=== PATIENT | male | born 1940 | race Caucasian/White ===

== ENCOUNTER 2018-11-30 14:29 | Emergency (ER) | payer MEDICARE ==
[~2018-11-30] VITALS: Ht 182.9 cm; Wt 90.7 kg
[2018-11-30] MEDS ORDERED: morphine INJ 10 MG/ML 1ML (SYR OR VIAL) IVP STA ×2 (14:42→17:39)
[2018-11-30] MEDS ORDERED: ONDANSETRON 4 MG/2 ML (SDV) Z0FRAN IVP ONE (14:45)
[2018-11-30 15:03] LABS: HEMATOCRIT 45 % (40-54); HEMOGLOBIN 14.7 G/DL (13.3-17.7); MEAN CORPUSCULAR HEMOGLOBIN 29 PG (25-34); MEAN CORPUSCULAR HGB CONC 33 G/DL (32-36); MEAN CORPUSCULAR VOLUME 88 FL (80-99); PLATELET COUNT 181 10^3/uL (130-400); RED CELL DISTRIBUTION WIDTH 12.1 % (10.0-14.5); WHITE BLOOD COUNT 8.1 10^3/uL (4.3-11.0)
[2018-11-30 15:04] LABS: BASOPHILS # (AUTO) 0.1 10^3/uL (0.0-0.1); BASOPHILS % (AUTO) 1 % (0-10); EOSINOPHILS # (AUTO) 0.1 10^3/uL (0.0-0.3); EOSINOPHILS % (AUTO) 1 % (0-10); LYMPHOCYTES # (AUTO) 3.5 X 10^3 (1.0-4.0); LYMPHOCYTES % (AUTO) 44 % (12-44); MEAN PLATELET VOLUME 10.5 FL (7.4-10.4); MONOCYTES # (AUTO) 0.7 X 10^3 (0.0-1.0); MONOCYTES % (AUTO) 8 % (0-12); NEUTROPHILS # (AUTO) 3.7 X 10^3 (1.8-7.8); NEUTROPHILS % (AUTO) 46 % (42-75)
--- OUTSIDE RECORDS SUMMARY | 2018-11-30 15:12 | XMS REPORT ---
Author Author JOSLYN HESS Organization [facility] Address [address] [place] [address] Care Team Providers Care Operations Asst Name Role Phone JOSLYN HESS Unavailable PROBLEMS Unknown Problems ALLERGIES No Known Allergies ENCOUNTERS Encounter Location Date Diagnosis [address] [id number] 12 Feb, [address] [address] 15 Oct, 2018 Perforation of right tympanic membrane H72.91 and Recurrent acute suppurative otitis media of right ear without spontaneous rupture of tympanic membrane H66.004 [facility] [address] [place] [address] 14 Oct, [address] [address] 04 Oct, 2018 Right non-suppurative otitis media H65.91 IMMUNIZATIONS No Known Immunizations SOCIAL HISTORY Never Assessed REASON FOR VISIT recheck ear, right saw Dr Jerome 10/15/18, ear drainage, [facility] Activity Details Follow Up prn Reason: VITAL SIGNS Height 72 in 2018-10-26 Weight 202 lbs 2018-10-26 Temperature 98.4 degrees Fahrenheit 2018-10-26 Heart Rate 74 bpm 2018-10-26 Respiratory Rate 22 2018-10-26 BMI 27.39 kg/m2 2018-10-26 Blood pressure systolic 140 mmHg 2018-10-26 Blood pressure diastolic 70 mmHg 2018-10-26 MEDICATIONS Medication Instructions Dosage Frequency Start Date End Date Duration Status Aspirin 81 MG Orally Once a day 1 tablet 24h 30 day(s) Active Myrbetriq 50 MG Orally in the morning 1 tablet 30 day(s) Active Fluoxetine HCl 20 MG Orally Once a day 1 capsule 24h 30 day(s) Active Ciprodex 0.3-0.1 % Otic Twice a day 4 drops into affected ear 12h 15 Oct, 2019 7 days Active Glucosamine Chondro Complex Active Lovastatin 20 MG Orally Once a day 1 tablet with the evening meal 24h 30 day(s) Active Latanoprost 0.005 % Ophthalmic Once a day 1 drop into affected eye in the evening 24h Active Augmentin 875-125 MG Orally every 12 hrs 1 tablet 12h Oct, 10 day(s) Active Alprazolam 0.25 MG Orally Twice a day 1 tablet 12h Active Magnesium Carbonate 250 MG/GM as directed Active Multivitamin Adults 50+ - as directed Active RESULTS No Results PROCEDURES Procedure Date Ordered Result Body Site [facility] VISIT NEW PATIENT Oct 26, 2018 INSTRUCTIONS MEDICATIONS ADMINISTERED No Known Medications MEDICAL (GENERAL) HISTORY Type Description Date Medical History HTN Medical History Anxiety Medical History Glaucoma Medical History Diverticulosis Medical History elevated diaphragm Medical History OA Surgical History appendectomy Surgical History rotator cuff repair left Surgical History colonoscopy Surgical History cataract-right eye Surgical History gallbladder Surgical History TKA right Surgical History Various skin cancers/skin tags Hospitalization History diverticulosis Hospitalization History c-diff
--- NOTE | 2018-11-30 15:16 | Diagnostic Imaging Report ---
INDICATION: Trauma with right knee pain. EXAMINATION: AP, oblique and lateral views of the right knee were obtained. FINDINGS: There is an acute fracture of the right distal femur just above the patient's knee prosthesis. There is posterior displacement of the distal fragment relative to the proximal fragment. There is no evidence of tibial or fibular fracture. IMPRESSION: Acute fracture of distal femur of the supracondylar region, just above the patient's knee prosthesis. There is posterior displacement of the distal portion of the femur relative to the proximal portion of the femur. Dictated by: Dictated on workstation # [id number]
[2018-11-30 15:25] LABS: ALKALINE PHOSPHATASE 88 U/L (40-136); BILIRUBIN,TOTAL 1.1 MG/DL (0.1-1.0); BUN/CREATININE RATIO 21; CALCIUM 9.6 MG/DL (8.5-10.1); CARBON DIOXIDE 23 MMOL/L (21-32); CHLORIDE 103 MMOL/L (98-107); CREATININE SERUM 1.07 MG/DL (0.60-1.30); GFR ESTIMATED > 60; GLUCOSE 137 MG/DL (70-105); POTASSIUM 4.1 MMOL/L (3.6-5.0); SODIUM 141 MMOL/L (135-145)
[2018-11-30 15:26] LABS: ALANINE AMINOTRANSFERASE 23 U/L (0-55); ALBUMIN 4.4 GM/DL (3.2-4.5); TOTAL PROTEIN 7.3 GM/DL (6.4-8.2)
[2018-11-30 15:29] LABS: BAND NEUTROPHILS 7 %; BASOPHILS % (MANUAL) 1 %; EOSINOPHILS % (MANUAL) 1 %; LYMPHOCYTES % (MANUAL) 43 %; MONOCYTES % (MANUAL) 8 %; NEUTROPHILS % (MANUAL) 40 %
--- NOTE | 2018-11-30 15:29 | Diagnostic Imaging Report ---
INDICATION: Trauma. Time of exam: 03:00 p.m. No prior studies are available for comparison. Right hemidiaphragm is elevated. No infiltrate or contusion is seen. There is no effusion or pneumothorax. No acute bony abnormality is seen. IMPRESSION: Elevated right hemidiaphragm. No other significant abnormality is detected. Dictated by: Dictated on workstation # [id number]
--- NOTE | 2018-11-30 15:30 | Diagnostic Imaging Report ---
INDICATION: Trauma. TIME OF EXAM: 2:48 p.m. EXAMINATION: Multiple views of the right femur were obtained. FINDINGS: Alignment at the hip is normal. There are postoperative changes of right knee arthroplasty. There appears to be a supracondylar distal femur fracture with mild posterior displacement of the distal fracture fragment. No other fracture is seen. IMPRESSION: Displaced supracondylar distal femur fracture. Dictated by: Dictated on workstation # [id number]
--- NOTE | 2018-11-30 15:32 | Diagnostic Imaging Report ---
INDICATION: Trauma. TIME OF EXAM: 02:50 p.m. Frontal and lateral views of the right tibia and fibula are obtained. There are postop changes of total knee arthroplasty. There is an acute supracondylar fracture of the distal femur with mild posterior displacement of distal fracture fragment. Alignment at the ankle is normal. The tibia and fibula appear intact. IMPRESSION: Supracondylar distal femur fracture. Dictated by: Dictated on workstation # [id number]
--- NOTE | 2018-11-30 15:34 | Diagnostic Imaging Report ---
INDICATION: Trauma, a bowl fell on the patient. TIME OF EXAM 2:55 PM FINDINGS: Femoral acetabular alignment is normal bilaterally. Both femoral heads and necks are intact. The rami appear intact. SI joints and symphysis are non-widened. No fractures are seen. IMPRESSION: No acute bony abnormality is detected. Dictated by: Dictated on workstation # [id number]
[2018-11-30 15:56] LABS: INR 1.1 (0.8-1.4)
[2018-11-30] MEDS ORDERED: HOLD METFORMIN - RECEIVED CONTRAST 20 ML VIAL IV SCH (16:15)
[2018-11-30] MEDS ORDERED: NS 100 ML (IVPB) BAG IV ONE (16:15)
[2018-11-30] MEDS ORDERED: IOHEXOL 350 MG/ML 100 ML (OMNIPAQUE 350) VIAL IV ONE (16:15)
[2018-11-30] MEDS ORDERED: CATHETER FLUSH 10 ML SYR IV PRN (16:15)
--- NOTE | 2018-11-30 16:49 | NUR ---
Patient back from CT. Denies need for pain meds.
--- NOTE | 2018-11-30 16:58 | Diagnostic Imaging Report ---
PROCEDURE: CT head and CT cervical spine without contrast. TECHNIQUE: Multiple contiguous axial images were obtained through the brain and cervical spine without the use of intravenous contrast. Sagittal and coronal reformations through the cervical spine were then performed. Auto Exposure Controls were utilized during the CT exam to meet ALARA standards for radiation dose reduction. INDICATION: Trauma. COMPARISON: None. FINDINGS: CT HEAD: The ventricles and cortical sulci are diffusely prominent, compatible with age-related volume loss. There are confluent areas of abnormal, low attenuation in the periventricular white matter. This is consistent with small vessel ischemic changes; age-indeterminate. There is no prior study available for comparison. There is no midline shift or mass-effect. No acute intra-axial hemorrhage is seen. There are no abnormal areas of increased or decreased density to suggest acute hemorrhage or edema. No extra-axial masses or collections are present. The bony calvarium is intact. The visualized paranasal sinuses are unremarkable. The mastoid air cells are partially opacified on the right.. CT CERVICAL SPINE: Evaluation of static alignment demonstrates slight grade 1 anterolisthesis of C6 on C7. Otherwise, static alignment is maintained. There is no evidence of jumped facets. Vertebral body heights are preserved. There is no evidence of acute fracture. No bony fragments are seen within the spinal canal. There are moderate multilevel degenerative changes consisting of intervertebral disc height loss with anterior and posterior disc bulges and multilevel facet arthropathy. Pre-and paravertebral soft tissue structures are unremarkable. Note is made of calcified carotid atherosclerosis. Included portion of the lung apices are unremarkable. IMPRESSION: 1. No acute intracranial abnormality. No CT evidence of mass, acute infarct or intracranial hemorrhage. 2. Small vessel ischemic changes in the periventricular and subcortical white matter; likely chronic. 3. No acute fracture or dislocation of cervical spine. 4. Mild multilevel degenerative changes. Dictated by: Dictated on workstation # [id number]
--- NOTE | 2018-11-30 17:20 | Diagnostic Imaging Report ---
PROCEDURE: CT chest, abdomen, and pelvis with contrast. TECHNIQUE: Multiple contiguous axial images were obtained through the chest, abdomen, and pelvis after the administration of intravenous contrast. Auto Exposure Controls were utilized during the CT exam to meet ALARA standards for radiation dose reduction. INDICATION: Trauma. Bowl fell on patient. FINDINGS: Sagittal and coronal reformatted images of the thoracic and lumbar spine show good alignment. No compression fractures are demonstrated. There are degenerative disc disease and degenerative facet changes. There are hypertrophic endplate changes anteriorly most probably at the level of T11 through L3. CT chest: The lungs are well-aerated. No evidence of pneumothorax. There is some infiltrate in the right lung base which could represent some lung contusion. No evidence of pleural effusion. No displaced rib fractures are demonstrated. There does appear to be a nondisplaced rib fracture posteriorly on the 12th rib on the right. There is good opacification of the aorta and pulmonary arteries. Vessels appear normal. No mediastinal or hilar adenopathy of pathologic size. IMPRESSION: There is infiltrate noted in the posterior basilar segment of right lung, likely secondary to lung contusion. No pneumothorax or pleural effusion. CT abdomen and pelvis: There is good opacification of the abdominal organs. No findings are seen to indicate visceral lacerations. Gallbladder is absent. There is a large cyst off of the upper pole of the right kidney measuring 13 cm. This does have a benign appearance without enhancement. Small cyst noted medially in the left kidney and inferiorly in the left kidney with largest cyst off the lower pole measuring 2.9 cm. Aorta and abdominal vessels show good enhancement with mild atherosclerotic change. No evidence of aortic dissection. No aneurysm. The stomach and small bowel are nondistended. The colon shows normal stool and gas pattern. There is diverticulosis of the sigmoid colon without evidence of diverticulitis. No free air or free fluid. The bony pelvis does appear to be intact. Femoral heads are in normal articulation bilaterally. IMPRESSION: 1. No acute intra-abdominal findings demonstrated. 2. Bilateral renal cysts with large cyst noted in right kidney. These do appear simple and benign in nature. Dictated by: Dictated on workstation # [id number]
--- NOTE | 2018-11-30 17:59 | ED Trauma-Multisystem ---
General Chief Complaint: Trauma-Non Activation Stated Complaint: RT KNEE INJ Nursing Triage Note: Was knocked down and stepped on by a 500 lb bull. Is complaining of R knee pain. Denies loc or hitting head. Source of Information: Patient History of Present Illness Date Seen by Provider: Nov 30, 2018 Time Seen by Provider: 14:30 Initial Comments Patient is a 78-year-old male who presents with head injury, chest injury and right lower extremity injury after being struck by a bull, flying in the air and landing on the ground. The patient was then stomped on by the ball multiple times. Patient arrives by private vehicle. He does not recall loss of consciousness but does report headache. Denies neck pain is not on anticoagulation therapy. Patient complains of chest wall pain, left shoulder pain and pain over his lower legs. Patient brought immediately to treatment room , placed in a gown. Obvious deformity noted to right leg. Neurovascularly intact. ED arrival GCS 15. Occurred: Just Prior to Arrival Pain/Injury Location: Abdomen, Chest, Head, Lower Extremity, Upper Extremity Method of Injury: Direct Blow, Fall Associated Symptoms (Fall): Chest Pain, Trouble Walking Allergies and Home Medications Allergies Coded Allergies: No Known Drug Allergies (Unverified , 11/30/18) Patient Home Medication List Home Medication List Reviewed: Yes Review of Systems Review of Systems Constitutional: see HPI Past Dsdyvgy-Xpbbob-Pofnml Hx Past Med/Social Hx: Reviewed Nursing Past Med/Soc Hx Patient Social History Alcohol Use: Denies Use Recreational Drug Use: No Smoking Status: Unknown if Ever Smoked Recent Foreign Travel: No Contact w/Someone Who Travel: No Recent Infectious Disease Expo: No Physical Abuse: No Sexual Abuse: No Mistreated: No Physical Exam Vital Signs Vital Signs - First Documented Height, Weight, BMI Height: 6'0" Weight: 200lbs. oz. [id number]; BMI Method:Stated General Appearance: Moderate Distress Head: No Evidence of Injury Eyes: Left Eye Normal Inspection, Left Eye PERRL Ears, Nose, Throat: Hearing Grossly Normal Neck: Full Range of Motion, Normal Inspection, Non Tender Cardiovascular: Regular Rate, Rhythm Respiratory: Chest Non Tender, Lungs Clear Gastrointestinal: Normal Bowel Sounds, No Organomegaly, Soft Rectal: Normal Exam, Normal Rectal Tone Focused Exam Sepsis Stage: Ruled Out Progress/Results/Core Measures Results/Orders Lab Results Laboratory Tests Test 11/30/18 14:35 11/30/18 14:55 Range/Units White Blood Count 8.1 4.3-11.0 10^3/uL Red Blood Count 5.09 4.35-5.85 10^6/uL Hemoglobin 14.7 13.3-17.7 G/DL Hematocrit 45 40-54 % Mean Corpuscular Volume 88 80-99 FL Mean Corpuscular Hemoglobin 29 25-34 PG Mean Corpuscular Hemoglobin Concent 33 32-36 G/DL Red Cell Distribution Width 12.1 10.0-14.5 % Platelet Count 181 130-400 10^3/uL Mean Platelet Volume 10.5 H 7.4-10.4 FL Neutrophils (%) (Auto) 46 42-75 % Lymphocytes (%) (Auto) 44 12-44 % Monocytes (%) (Auto) 8 0-12 % Eosinophils (%) (Auto) 1 0-10 % Basophils (%) (Auto) 1 0-10 % Neutrophils # (Auto) 3.7 1.8-7.8 X 10^3 Lymphocytes # (Auto) 3.5 1.0-4.0 X 10^3 Monocytes # (Auto) 0.7 0.0-1.0 X 10^3 Eosinophils # (Auto) 0.1 0.0-0.3 10^3/uL Basophils # (Auto) 0.1 0.0-0.1 10^3/uL Neutrophils % (Manual) 40 % Lymphocytes % (Manual) 43 % Monocytes % (Manual) 8 % Eosinophils % (Manual) 1 % Basophils % (Manual) 1 % Band Neutrophils 7 % Sodium Level 141 135-145 MMOL/L Potassium Level 4.1 3.6-5.0 MMOL/L Chloride Level 103 98-107 MMOL/L Carbon Dioxide Level 23 21-32 MMOL/L Anion Gap 15 H 5-14 MMOL/L Blood Urea Nitrogen 22 H 7-18 MG/DL Creatinine 1.07 0.60-1.30 MG/DL Estimat Glomerular Filtration Rate > 60 BUN/Creatinine Ratio 21 Glucose Level 137 H 70-105 MG/DL Calcium Level 9.6 8.5-10.1 MG/DL Corrected Calcium 9.3 8.5-10.1 MG/DL Total Bilirubin 1.1 H 0.1-1.0 MG/DL Aspartate Amino Transf (AST/SGOT) 38 H 5-34 U/L Alanine Aminotransferase (ALT/SGPT) 23 0-55 U/L Alkaline Phosphatase 88 40-136 U/L Total Protein 7.3 6.4-8.2 GM/DL Albumin 4.4 3.2-4.5 GM/DL Prothrombin Time 14.0 12.2-14.7 SEC INR Comment 1.1 0.8-1.4 Activated Partial Thromboplast Time 25 24-35 SEC My Orders Orders - DAYANARA HERNANDEZ DO Morphine Injection (Morphine Injection (11/30/18 14:42) Ondansetron Injection (Zofran Injectio (11/30/18 14:45) Cbc With Automated Diff (11/30/18 14:42) Cbc And Manual Diff (11/30/18 14:42) Knee 3 View Right (11/30/18 14:42) Comprehensive Metabolic Panel (11/30/18 14:55) Protime With Inr (11/30/18 14:55) Partial Thromboplastin Time (11/30/18 14:55) Chest 1 View Ap/Pa Only (11/30/18 14:56) Pelvis (Ap) (11/30/18 14:56) Femur 2 View Right (11/30/18 14:57) Tibia Fibula 2 View Right (11/30/18 14:57) Ct Head/Cervical Spine Wo (11/30/18 15:38) Ct Chest/Abdomen/Pelvis W (11/30/18 15:38) Iohexol Injection (Omnipaque 350 Mg/Ml 1 (11/30/18 16:15) Received Contrast (Hold Metformin- Contr (11/30/18 16:15) Sodium Chloride Flush (Catheter Flush Sy (11/30/18 16:15) Ns (Ivpb) (Sodium Chloride 0.9% Ivpb Bag (11/30/18 16:15) Nursing Communication (Order) (11/30/18 17:15) Morphine Injection (Morphine Injection (11/30/18 17:39) Ns Iv 1000 Ml (Sodium Chloride 0.9%) (11/30/18 18:00) Ondansetron Injection (Zofran Injectio (11/30/18 18:00) Morphine Injection (Morphine Injection (11/30/18 18:00) Medications Given in ED Current Medications Medications Dose Ordered Sig/Brennen Route Start Time Stop Time Status Last Admin Dose Admin Iohexol 100 ml ONCE ONCE IV 11/30/18 16:15 11/30/18 16:46 DC 11/30/18 16:32 100 ML Ondansetron HCl 4 mg ONCE ONCE IVP 11/30/18 14:45 11/30/18 14:46 DC 11/30/18 14:48 4 MG Sodium Chloride 10 ml NEEDED PRN IV 11/30/18 16:15 11/30/18 16:32 10 ML Sodium Chloride 100 ml ONCE ONCE IV 11/30/18 16:15 11/30/18 16:46 DC 11/30/18 16:32 100 ML Vital Signs/I&O 11/30/18 11/30/18 14:30 14:30 Temp 98.3 98.3 Pulse 82 82 Resp 20 20 B/P (MAP) 121/67 (85) 121/67 (85) Pulse Ox 95 95 Blood Pressure Mean: 85 Departure Impression Primary Impression: Right femoral fracture Disposition: 02 XFER SHT-TRM HOSP Condition: Stable Admissions Decision to Admit Reason: Admit from ER (Trauma) (Dr. Alvarado) Decision to Admit/Date: Nov 30, 2018 Time/Decision to Admit Time: 18:07 Transfer Time Spoke to Accepting Phy: 18:07 Method of Transfer: EMS Departure-Patient Inst. Referrals: CHRIS GREY MD (PCP/Family) Primary Care Physician DAYANARA HERNANDEZ DO Nov 30, 2018 17:59
[2018-11-30] MEDS ORDERED: ONDANSETRON 4 MG/2 ML (SDV) Z0FRAN IVP PRN (18:00)
[2018-11-30] MEDS ORDERED: morphine INJ 10 MG/ML 1ML (SYR OR VIAL) IVP PRN (18:00)
[2018-11-30] MEDS ORDERED: NS IV 1000 ML 1,000 ML IV SCH (18:00)
--- NOTE | 2018-11-30 18:02 | NUR ---
Knee immobilizer applied to R leg.
[2018-11-30 18:33] VITALS: BP 106/66
--- NOTE | 2018-11-30 18:47 | NUR ---
Patient transferred at this time via [facility]
== END 2018-12-01 18:33 | disposition short-term general hospital (02) ==
LOC: ER FS 14:33
DX: S72.451A Displaced supracondylar fracture without intracondylar extension of lower end of right femur, initial encounter for closed fracture (principal); S09.90XA Unspecified injury of head, initial encounter; W55.89XA Other contact with other mammals, initial encounter
CPT/HCPCS: 36415; 70450; 71045; 71260; 72125; 72170; 73552; 73562; 73590; 74177; 80053; 85007; 85027; 85610; 85730

== ENCOUNTER 2019-01-30 23:06 | Observation (INO) | payer MEDICARE ==
[~2019-01-30] VITALS: Ht 182.9 cm; Wt 88.1 kg
--- OUTSIDE RECORDS SUMMARY | 2019-01-30 23:12 | XMS REPORT | Continuity of Care Document ---
Author Organization Unknown Address Unknown Allergies There is no data. Medications There is no data. Problems There is no data. Procedures There is no data. Results There is no data. Encounters ACCT No. Visit Date/Time Discharge Status Pt. Type Provider Facility Loc./Unit Complaint [id number] 2019 11:00:00 2019 23:59:59 [facility]
[2019-01-30] MEDS ORDERED: RT-ALBUTEROL/IPRATROPIUM 3 ML (DUONEB) VIAL INH ONE (23:45)
[2019-01-30] MEDS ORDERED: ASPIRIN 81 MG CHEW (CHILDREN'S ASA) PO ONE (23:45)
[2019-01-30 23:53] LABS: HEMATOCRIT 42 % (40-54); HEMOGLOBIN 13.5 G/DL (13.3-17.7); MEAN CORPUSCULAR HEMOGLOBIN 29 PG (25-34); MEAN CORPUSCULAR HGB CONC 32 G/DL (32-36); MEAN CORPUSCULAR VOLUME 89 FL (80-99); MEAN PLATELET VOLUME 10.1 FL (7.4-10.4); PLATELET COUNT 169 10^3/uL (130-400); RED CELL DISTRIBUTION WIDTH 12.5 % (10.0-14.5); WHITE BLOOD COUNT 6.9 10^3/uL (4.3-11.0)
[2019-01-30 23:54] LABS: BASOPHILS # (AUTO) 0.1 10^3/uL (0.0-0.1); BASOPHILS % (AUTO) 1 % (0-10); EOSINOPHILS # (AUTO) 0.2 10^3/uL (0.0-0.3); EOSINOPHILS % (AUTO) 3 % (0-10); LYMPHOCYTES # (AUTO) 1.6 X 10^3 (1.0-4.0); LYMPHOCYTES % (AUTO) 23 % (12-44); MONOCYTES # (AUTO) 0.7 X 10^3 (0.0-1.0); MONOCYTES % (AUTO) 10 % (0-12); NEUTROPHILS # (AUTO) 4.4 X 10^3 (1.8-7.8); NEUTROPHILS % (AUTO) 63 % (42-75)
[2019-01-31 00:23] LABS: ALANINE AMINOTRANSFERASE 15 U/L (0-55); ALKALINE PHOSPHATASE 147 U/L (40-136); BILIRUBIN,TOTAL 0.4 MG/DL (0.1-1.0); BUN/CREATININE RATIO 23; CALCIUM 9.6 MG/DL (8.5-10.1); CARBON DIOXIDE 24 MMOL/L (21-32); CHLORIDE 103 MMOL/L (98-107); CREATININE SERUM 0.95 MG/DL (0.60-1.30); GFR ESTIMATED > 60; GLUCOSE 116 MG/DL (70-105); MAGNESIUM 2.1 MG/DL (1.8-2.4); POTASSIUM 4.5 MMOL/L (3.6-5.0); SODIUM 141 MMOL/L (135-145)
[2019-01-31 00:24] LABS: ALBUMIN 4.3 GM/DL (3.2-4.5); TOTAL PROTEIN 7.3 GM/DL (6.4-8.2)
[2019-01-31] MEDS ORDERED: IOHEXOL 350 MG/ML 100 ML (OMNIPAQUE 350) VIAL IV ONE (00:30)
[2019-01-31] MEDS ORDERED: NS 100 ML (IVPB) BAG IV ONE (00:30)
[2019-01-31] MEDS ORDERED: HOLD METFORMIN - RECEIVED CONTRAST 20 ML VIAL IV SCH (00:30)
[2019-01-31] MEDS ORDERED: ASPIRIN 81 MG CHEW (CHILDREN'S ASA) PO ONE (01:00)
--- NOTE | 2019-01-31 01:45 | ED Chest Pain ---
General Chief Complaint: Chest Pain Stated Complaint: ANXIETY;HEADACHE;SOB Nursing Triage Note: pt states he had a panic attack earlier tonight, does co of ongoing soa x 1 year, states tonight he had chest pain while walking into ed but none upon arrival to room Nursing Sepsis Screen: No Definite Risk Source: patient, family Exam Limitations: no limitations History of Present Illness Date Seen by Provider: January 31, 2019 Time Seen by Provider: 23:20 Initial Comments This 79 year old gentleman presents to the ER by private vehicle for reasons of shortness of air and anxiety. He also reported a brief episode of right lower chest pain about the time he arrived to the ER. That pain is now gone. Patient had a femur fracture in November of this year that was surgically repaired at [facility]. He called 911 earlier in the evening because of a "panic attack" and shortness of breath. He was assessed at the home but did not come to the ER. He later decided to come to the ER when symptoms worsened again. He has had increasing difficulties with shortness of breath over the last several months but his shortness of breath became acutely worse tonight. He denies any cough or fever. He denies any calf pain or swelling. Allergies and Home Medications Allergies Coded Allergies: No Known Drug Allergies (Unverified , 11/30/18) Patient Home Medication List Home Medication List Reviewed: Yes Review of Systems Review of Systems Constitutional: no symptoms reported EENTM: No Symptoms Reported Respiratory: See HPI Cardiovascular: See HPI Gastrointestinal: No Symptoms Reported Genitourinary: No Symptoms Reported Musculoskeletal: no symptoms reported Skin: no symptoms reported Psychiatric/Neurological: No Symptoms Reported Endocrine: No Symptoms Reported Hematologic/Lymphatic: No Symptoms Reported Past Byseisf-Uqzfvd-Yzajog Hx Past Med/Social Hx: Reviewed and Corrections made Patient Social History Alcohol Use: Rarely Uses Recreational Drug Use: No Smoking Status: Former Smoker 2nd Hand Smoke Exposure: No Recent Foreign Travel: No Contact w/Someone Who Travel: No Recent Infectious Disease Expo: No Recent Hopitalizations: No Physical Abuse: No Sexual Abuse: No Mistreated: No Fear: No Seasonal Allergies Seasonal Allergies: No Past Medical History Surgeries: Yes Appendectomy, Eye Surgery, Orthopedic Respiratory: No Cardiac: No Neurological: No Genitourinary: No Gastrointestinal: Yes Diverticulosis, Hemorrhoids Musculoskeletal: Yes Arthritis Endocrine: Yes HEENT: Yes Cataract Cancer: Yes Skin Psychosocial: No Integumentary: No Blood Disorders: No Physical Exam Vital Signs Vital Signs - First Documented 01/30/19 01/30/19 23:47 23:53 Temp 98.0 Pulse 86 Resp 23 B/P (MAP) 126/70 (88) Pulse Ox 95 O2 Delivery Nasal Cannula O2 Flow Rate 2.00 Capillary Refill : Less Than 3 Seconds Height, Weight, BMI Height: 6'0" Weight: 195lbs. oz. 88.454529pz; BMI Method:Stated General Appearance: No Apparent Distress, WD/WN HEENT: PERRL/EOMI, Normal ENT Inspection, Pharynx Normal Neck: Normal Inspection Respiratory: Lungs Clear, No Accessory Muscle Use, No Respiratory Distress, Decreased Breath Sounds, Other (prolonged expiratory phase) Cardiovascular: Regular Rate, Rhythm, No Edema, No Murmur Gastrointestinal: Normal Bowel Sounds, Non Tender, Soft Extremity: Normal Inspection, Non Tender, No Calf Tenderness, No Pedal Edema Neurologic/Psychiatric: Alert, Oriented x3, No Motor/Sensory Deficits, Normal Mood/Affect, senior developer II-XII Norm as Tested Skin: Normal Color, Warm/Dry Progress/Results/Core Measures Results/Orders Lab Results Laboratory Tests Test 01/30/19 00:00 01/30/19 23:38 Range/Units Troponin T 15 <=15 NG/L White Blood Count 6.9 4.3-11.0 10^3/uL Red Blood Count 4.71 4.35-5.85 10^6/uL Hemoglobin 13.5 13.3-17.7 G/DL Hematocrit 42 40-54 % Mean Corpuscular Volume 89 80-99 FL Mean Corpuscular Hemoglobin 29 25-34 PG Mean Corpuscular Hemoglobin Concent 32 32-36 G/DL Red Cell Distribution Width 12.5 10.0-14.5 % Platelet Count 169 130-400 10^3/uL Mean Platelet Volume 10.1 7.4-10.4 FL Neutrophils (%) (Auto) 63 42-75 % Lymphocytes (%) (Auto) 23 12-44 % Monocytes (%) (Auto) 10 0-12 % Eosinophils (%) (Auto) 3 0-10 % Basophils (%) (Auto) 1 0-10 % Neutrophils # (Auto) 4.4 1.8-7.8 X 10^3 Lymphocytes # (Auto) 1.6 1.0-4.0 X 10^3 Monocytes # (Auto) 0.7 0.0-1.0 X 10^3 Eosinophils # (Auto) 0.2 0.0-0.3 10^3/uL Basophils # (Auto) 0.1 0.0-0.1 10^3/uL Prothrombin Time 14.0 12.2-14.7 SEC INR Comment 1.0 0.8-1.4 Activated Partial Thromboplast Time 28 24-35 SEC D-Dimer 3.90 H 0.00-0.49 UG/ML Sodium Level 141 135-145 MMOL/L Potassium Level 4.5 3.6-5.0 MMOL/L Chloride Level 103 98-107 MMOL/L Carbon Dioxide Level 24 21-32 MMOL/L Anion Gap 14 5-14 MMOL/L Blood Urea Nitrogen 22 H 7-18 MG/DL Creatinine 0.95 0.60-1.30 MG/DL Estimat Glomerular Filtration Rate > 60 BUN/Creatinine Ratio 23 Glucose Level 116 H 70-105 MG/DL Calcium Level 9.6 8.5-10.1 MG/DL Corrected Calcium 9.4 8.5-10.1 MG/DL Magnesium Level 2.1 1.8-2.4 MG/DL Total Bilirubin 0.4 0.1-1.0 MG/DL Aspartate Amino Transf (AST/SGOT) 19 5-34 U/L Alanine Aminotransferase (ALT/SGPT) 15 0-55 U/L Alkaline Phosphatase 147 H 40-136 U/L Myoglobin 35.3 10.0-92.0 NG/ML Total Protein 7.3 6.4-8.2 GM/DL Albumin 4.3 3.2-4.5 GM/DL My Orders Orders - ANALI GERMAIN MD Cbc With Automated Diff (01/30/19 23:32) Magnesium (01/30/19 23:32) Chest 1 View Ap/Pa Only (01/30/19:32) Ekg Tracing (01/30/19:32) Comprehensive Metabolic Panel (01/30/19:32) Myoglobin Serum (01/30/19 23:32) Protime With Inr (01/30/19:32) Partial Thromboplastin Time (01/30/19:) O2 (5/22/19 23:32) Monitor-Rhythm Ecg Trace Only (01/30/19 23:32) Lipid Panel (01/31/19 06:00) Aspirin Chewable Tablet (Baby Aspirin Ch (01/30/19 23:45) Ed Iv/Invasive Line Start (01/30/19 23:32) Fibrin Degradation Products (01/30/19 23:32) Albuterol/Ipra Inhalation Soln (Duoneb I (01/30/19 23:45) Svn Small Volume Nebulizer (01/30/19 23:32) Troponin T (01/31/19 00:02) Ct Angio Chest W (01/31/19 00:27) Iohexol Injection (Omnipaque 350 Mg/Ml 1 (01/31/19 00:30) Received Contrast (Hold Metformin- Contr (01/31/19 00:30) Ns (Ivpb) (Sodium Chloride 0.9% Ivpb Bag (01/31/19 00:30) Aspirin Chewable Tablet (Baby Aspirin Ch (01/31/19 01:00) Medications Given in ED Current Medications Medications Dose Ordered Sig/Brennen Route Start Time Stop Time Status Last Admin Dose Admin Albuterol/ Ipratropium 3 ml ONCE ONCE INH 01/30/19 23:45 01/30/19 23:46 DC 01/30/19 23:46 3 ML Aspirin 324 mg ONCE ONCE PO 01/30/19 23:45 01/30/19 23:46 DC 01/30/19 23:46 324 MG Iohexol 100 ml ONCE ONCE IV 01/31/19 00:30 01/31/19 00:31 DC 01/31/19 00:40 100 ML Sodium Chloride 100 ml ONCE ONCE IV 01/31/19 00:30 01/31/19 00:31 DC 01/31/19 00:40 100 ML Vital Signs/I&O 01/30/19 01/30/19 23:47 23:53 Temp 98.0 Pulse 86 Resp 23 B/P (MAP) 126/70 (88) Pulse Ox 95 90 O2 Delivery Nasal Cannula Room Air O2 Flow Rate 2.00 Blood Pressure Mean: 88 Progress Progress Note : Progress Note Patient was seen and examined. Aspirin was given as part of the chest pain protocol. EKG showed no ischemic changes. D-dimer returned significantly elevated. CT angiogram of the chest was obtained. Bilateral pulmonary emboli were identified. Patient was treated with a Eliquis. He received a DuoNeb treatment but that did not resolve his hypoxia. Patient was hypoxic with oxygen saturations in the upper 80s on room air. He did well on nasal cannula at low flow. Because of the hypoxia, admission was felt appropriate. Case was reviewed with Dr. Pimentel who agrees with admission. Patient was transferred to via [facility] in [place] for admission. Initial ECG Impression Date: January 31, 2019 Initial ECG Impression Time: 23:41 Initial ECG Rate: 81 Initial ECG Rhythm: Normal Sinus Initial ECG Intervals: Normal Initial ECG Impression: Normal Comment Normal sinus rhythm with no ST elevation or depression. No abnormal intervals or axis deviation. Diagnostic Imaging Diagonstic Imaging: Xray Plain Films/CT/US/NM/MRI: chest Comments Chest x-ray viewed by me. Report not yet available. There was elevation of the right hemidiaphragm. No other acute abnormalities appreciated. Departure Communication (Admissions) Time/Spoke to Admitting Phy: 01:49 Dr. Pimentel Impression Primary Impression: Bilateral pulmonary embolism Additional Impression: Hypoxia Disposition: 09 ADMITTED INPATIENT Condition: Improved Admissions Decision to Admit Reason: Admit from ER (General) Decision to Admit/Date: January 31, 2019 Time/Decision to Admit Time: 01:40 Transfer Time Spoke to Accepting Phy: 01:49 Transfer Time: 03:52 Transfer Facility: [facility] [facility] Method of Transfer: EMS Departure-Patient Inst. Referrals: SELFCHRIS MD (PCP/Family) Primary Care Physician ANALI GERMAIN MD January 31, 2019 01:45
--- OUTSIDE RECORDS SUMMARY | 2019-01-31 02:14 | XMS REPORT | Continuity of Care Document ---
Author Organization Unknown Address Unknown Allergies There is no data. Medications There is no data. Problems There is no data. Procedures There is no data. Results There is no data. Encounters ACCT No. Visit Date/Time Discharge Status Pt. Type Provider Facility Loc./Unit Complaint [id number] 2019 11:00:00 2019 23:59:59 CLS [facility]
[2019-01-31] MEDS ORDERED: APIXABAN 5 MG (ELIQUIS) TABLET PO ONE (02:30)
--- NOTE | 2019-01-31 03:30 | NUR ---
ems here for pt transport
[2019-01-31 04:30] VITALS: BP 125/74
--- NOTE | 2019-01-31 04:30 | NUR ---
RUDY JORGENSEN admitted to room 407-1, with an admitting diagnosis of PULMONARY EMBOLISM, on 01/31/19 from ED via EMS, accompanied by OR NURSE MANAGER. RUDY JORGENSEN introduced to surroundings, call light, bed controls, phone, TV, temperature control, lights, meal times, smoking policy, visitor policy, side rail policy, bathrooms and showers.
[2019-01-31 05:20] VITALS: BP 125/74
[2019-01-31] MEDS ORDERED: RT-ALBUTEROL/IPRATROPIUM 3 ML (DUONEB) VIAL INH PRN (05:45)
[2019-01-31] MEDS ORDERED: ALPRAZolam 0.5 MG (XANAX) TAB PO PRN (06:00)
--- NOTE | 2019-01-31 07:11 | Diagnostic Imaging Report ---
PROCEDURE: CT angiography of the chest with contrast. TECHNIQUE: Multiple contiguous axial images were obtained through the chest after uneventful bolus administration of intravenous contrast. 2D reconstructed CTA MIP acquisitions were also performed. Auto Exposure Controls were utilized during the CT exam to meet ALARA standards for radiation dose reduction. INDICATION: Shortness of air COMPARISON: CT chest of 11/30/2018 FINDINGS: Vasculature: Acute nonocclusive pulmonary emboli are present at the right and left main pulmonary arteries. The majority of the emboli extend into the left lower lobe segmental arteries. There is extension of the right upper lobe arteries as well. Overall there is a small to moderate burden of acute pulmonary embolus. No features of right ventricular strain or pulmonary hypertension. Thoracic aorta is normal in caliber. No aortic dissection or pseudoaneurysm. Heart and mediastinum: Visualized thyroid is normal. No supraclavicular, axillary, or intra-thoracic lymphadenopathy. The heart is normal in size without pericardial effusion. Pleura: No pleural effusion or pneumothorax. Lungs and airway: No endoluminal lesion in the trachea or central bronchi. No pulmonary mass or consolidation. A 4 mm right upper lobe pulmonary nodule is unchanged (image 22, series 2). No features of pulmonary infarct. Compressive atelectasis adjacent to the elevation of the right hemidiaphragm is unchanged. Upper abdomen: Large right renal cyst is unchanged. Cholecystectomy. Musculoskeletal: No concerning osseous lesion. IMPRESSION: 1. Small to moderate burden of acute bilateral pulmonary emboli predominantly involving the right upper and left lower lobe segmental arteries. 2. No features of right ventricular strain or pulmonary hypertension. 3. No pulmonary infarct. 4. Findings are in agreement with the preliminary report. Dictated by: Dictated on workstation # [id number]
--- NOTE | 2019-01-31 07:15 | Diagnostic Imaging Report ---
Indication: Shortness of air. Comparison: CTA chest performed one hour subsequently. Findings: Asymmetric elevation of the right hemidiaphragm is present. There is compressive atelectasis along the right hemidiaphragm. Otherwise, visualized lungs are clear. No pleural effusion or pneumothorax. Heart is normal in size. Impression: 1. Please see CTA chest report for details of acute bilateral pulmonary emboli. 2. Asymmetric elevation the right hemidiaphragm with a small amount of subsegmental compressive atelectasis. Dictated by: Dictated on workstation # [id number]
[2019-01-31] MEDS: APIXABAN 5 MG (ELIQUIS) TABLET PO SCH ×2 (08:13→20:28)
[2019-01-31] MEDS: FLUoxetine HCL 20 MG (PROzac) CAP PO SCH (08:13)
[2019-01-31 08:20] VITALS: BP 112/68
--- NOTE | 2019-01-31 08:32 | History & Physical-Hospitalist ---
History of Present Illness HPI/Chief Complaint CC: Shortness of breath HPI: This is an 79yoWM pt of Dr. 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 ER with SOB found to have elevated D-dimer and hypoxia, found to have CT angiogram confirmation of B/L pulmonary emboli. He has never had a clot before. He does have a recent history of sx on the right thigh where he was injured when a cow ran him over several years ago. He had that sx in and was on crutches for eight weeks since December 06 and was on Aspirin therapy for DVT prophylaxis. He just recently started walking around. Dr. Davenport has been consulted. ABG and Echo along with Venous doppler ultrasound of the lower extremities. They suspect right lower extremity DVT is cause of the PE. He has been placed on anticoagulation. Dr. Vang has been consulted due to hemorrhoid issue and he does have a lot of bleeding for that and he will have to to be on anticoagulation so we will have hemorrhoids managed because that could preclude anticoagulation. Source: patient, RN/MD Exam Limitations: no limitations Date Seen 01/31/19 Time Seen by a Provider: 08:45 Attending Physician Kati Pimentel DO PCP Kodak Gresham MD Referring Physician Date of Admission January 31, 2019 at 01:56 Home Medications & Allergies Home Medications Reviewed patient Home Medication Reconciliation performed by pharmacy medication reconciliations oxygen therapy technician and/or nursing. Patients Allergies have been reviewed. Allergies Allergies Coded Allergies No Known Drug Allergies (Unverified11/30/18) Past Irwwvro-Islhiu-Yivmgw Hx Past Med/Social Hx: Reviewed Nursing Past Med/Soc Hx, Reviewed and Corrections made Patient Social History Marrital Status: single Employed/Student: employed Alcohol Use: Rarely Uses Recreational Drug Use: No Smoking Status: Former Smoker 2nd Hand Smoke Exposure: No Recent Foreign Travel: No Contact w/other who traveled: No Recent Hopitalizations: No Recent Infectious Disease Expo: No Seasonal Allergies Seasonal Allergies: No Past Medical History Surgeries: Appendectomy, Eye Surgery, Orthopedic (right femur 12/06/18 in ) Gastrointestinal: Diverticulosis, Hemorrhoids Musculoskeletal: Arthritis HEENT: Cataract Cancer: Skin History of Blood Disorders: No Family History Completed stroke 19 FATHER Diabetes mellitus 19 MOTHER G8 SISTER Review of Systems Constitutional: see HPI EENTM: no symptoms reported Respiratory: dyspnea on exertion, short of breath Cardiovascular: no symptoms reported Gastrointestinal: no symptoms reported Genitourinary: no symptoms reported Musculoskeletal: no symptoms reported Skin: no symptoms reported Psychiatric/Neurological: No Symptoms Reported All Other Systems Reviewed Negative Unless Noted: Yes Physical Exam Physical Exam Vital Signs Vital Signs - First Documented 01/30/19 01/30/19 01/31/19 23:47 23:53 05:20 Temp 98.0 Pulse 86 Resp 23 B/P (MAP) 126/70 (88) Pulse Ox 95 O2 Delivery Nasal Cannula O2 Flow Rate 2.00 FiO2 28 Capillary Refill : Less Than 3 Seconds Height, Weight, BMI Height: 6'0.00" Weight: 194lbs. 4.8oz. 88.672292hr; 26.4 BMI Method:Stated General Appearance: No Apparent Distress, WD/WN, Chronically ill, Thin, Other (wearing O2) Eyes: Right Eye Normal Inspection, Right Eye PERRL HEENT: PERRL/EOMI, Normal ENT Inspection, Pharynx Normal, Moist Mucous Membranes Neck: Full Range of Motion, Normal Inspection, Non Tender Respiratory: Chest Non Tender, Lungs Clear, Normal Breath Sounds, No Accessory Muscle Use, No Respiratory Distress Cardiovascular: Regular Rate, Rhythm, No Edema, No Gallop, No JVD, No Murmur, Normal Peripheral Pulses Gastrointestinal: Normal Bowel Sounds, No Organomegaly, No Pulsatile Mass, Non Tender, Soft Back: Normal Inspection, No CVA Tenderness, No Vertebral Tenderness Extremity: Normal Capillary Refill, Normal Inspection, Normal Range of Motion, Non Tender, No Calf Tenderness, No Pedal Edema Neurologic/Psychiatric: Alert, Oriented x3, No Motor/Sensory Deficits, Normal Mood/Affect Skin: Normal Color, Warm/Dry Lymphatic: No Adenopathy Results Results/Procedures Labs Laboratory Tests 01/30/19 23:38 Patient resulted labs reviewed. Assessment/Plan Admission Diagnosis Assessment: Bilateral PE's Recent right femur surgery 12/06/18 maintained on crutches until last week main tained on ASA daily Hypoxia Hemorrhoids with regular bleeding Anticoagulation required for 3 months BPH managed by Dr Ferraro Plan: ECHO Doppler USG legs Eliquis Consult Dr Davenport and Dr Vang Admission Status: Observation Diagnosis/Problems Diagnosis/Problems (1) Bilateral pulmonary embolism Status: Acute (2) Hypoxia Status: Acute (3) BPH (benign prostatic hyperplasia) Status: Chronic Qualifiers: Lower urinary tract symptom presence: symptoms present Lower urinary tract symptom detail: urinary frequency Qualified Codes: N40.1 - Benign prostatic hyperplasia with lower urinary tract symptoms; R35.0 - Frequency of micturition (4) Bleeding hemorrhoid Status: Chronic (5) Hematochezia Status: Acute (6) History of femur fracture Status: Chronic Clinical Quality Measures DVT/VTE Risk/Contraindication: Risk Factor Score Per Nursin RFS Level Per Nursing on Admit: 4+=Very High ABIMAEL ANTHONY DO January 31, 2019 08:32
--- NOTE | 2019-01-31 08:47 | Pulmonary Consultation ---
History of Present Illness History of Present Illness Date of Consultation 01/31/19 08:42 Time Seen by Provider: 08:42 Date of Admission History of Present Illness 79yo with hx of femur fracture in November surgically repaired at [facility] presented to ED secondary to worsening SOB and Right CP. SOB has been worsening over the last several months. Pt was found to have an elevated DDIMer in ED so CTA of chest was order which showed an acute PE. He denies any cough or fever. He denies any calf pain or swelling. I am consulted for pulmonary management. Allergies and Home Medications Allergies Coded Allergies: No Known Drug Allergies (Unverified , 11/30/18) Past Lmuuxmp-Yqsnyo-Ttjsxq Hx Past Med/Social Hx: Reviewed and Corrections made Patient Social History Alcohol Use: Rarely Uses Recreational Drug Use: No Smoking Status: Former Smoker 2nd Hand Smoke Exposure: No Recent Foreign Travel: No Contact w/Someone Who Travel: No Recent Infectious Disease Expo: No Recent Hopitalizations: No Physical Abuse: No Sexual Abuse: No Mistreated: No Fear: No Seasonal Allergies Seasonal Allergies: No Past Medical History Surgeries: Yes Appendectomy, Eye Surgery, Orthopedic Respiratory: No Cardiac: No Neurological: No Genitourinary: No Gastrointestinal: Yes Diverticulosis, Hemorrhoids Musculoskeletal: Yes Arthritis Endocrine: Yes HEENT: Yes Cataract Cancer: Yes Skin Psychosocial: No Integumentary: No Blood Disorders: No Family Medical History Completed stroke 19 FATHER Diabetes mellitus 19 MOTHER G8 SISTER Review of Systems Time Seen by Provider: 08:56 Constitutional: Weakness, Malaise; No: Fever, Chills, Sweats, Other Eyes: No: Pain, Vision change, Conjunctivae inflammation, Eyelid inflammation, Other, Redness ENT: No: Ear pain, Ear discharge, Nose pain, Nose discharge, Nose congestion, Mouth pain, Mouth swelling, Throat pain, Throat swelling, Other Respiratory: Cough, Dry, Shortness of breath, SOB with excertion; No: Wheezing, Hemoptysis, Pleuritic Pain, Sputum, Wheezing, Other Cardiovascular: Chest Pain, Palpitations, Paroxysmal Noc. Dyspnea, Edema, Lt Headedness; No: Orthopnea, Other Gastrointestinal: No: Nausea, Vomiting, Abdominal Pain, Diarrhea, Constipation, Melena, Hematochezia, Other Genitourinary: No Dysuria, No Frequency, No Incontinence, No Hematuria, No Retention, No Other Sepsis Event Evaluation Height, Weight, BMI Height: 6'0.00" Weight: 194lbs. 4.8oz. 88.171981wk; 26.4 BMI Method:Stated Exam Exam Vital Signs Date Time Temp Pulse Resp B/P (MAP) Pulse Ox O2 Delivery O2 Flow Rate FiO2 01/31/19 08:20 97.6 81 18 112/68 (83) 96 Nasal Cannula 2.00 01/31/19 07:00 68 01/31/19 06:48 92 Nasal Cannula 2.00 01/31/19 05:22 72 01/31/19 05:20 68 92 28 01/31/19 05:20 92 Nasal Cannula 2.00 01/31/19 04:30 Nasal Cannula 2.00 01/31/19 04:30 97.8 79 20 125/74 93 Nasal Cannula 2.00 01/31/19 04:30 97.8 79 20 125/74 (91) 93 Nasal Cannula 2.00 01/31/19 03:30 86 19 119/62 (81) 93 Nasal Cannula 2.00 01/30/19 23:53 98.0 86 23 126/70 (88) 90 Room Air 01/30/19 23:47 95 Nasal Cannula 2.00 I & O 01/31/19 06:59 Intake Total 25 ml Balance 25 ml Height & Weight Height: 6'0.00" Weight: 194lbs. 4.8oz. 88.680008pj; 26.4 BMI Method:Stated General Appearance: No Apparent Distress, WD/WN HEENT: PERRL/EOMI, Normal ENT Inspection, Pharynx Normal Neck: Normal Inspection Respiratory: Lungs Clear, No Accessory Muscle Use, No Respiratory Distress, Decreased Breath Sounds, Other (prolonged expiratory phase) Cardiovascular: Regular Rate, Rhythm, No Edema, No Murmur Capillary Refill: Less Than 3 Seconds Extremity: Normal Inspection, Non Tender, No Calf Tenderness, No Pedal Edema Neurologic/Psychiatric: Alert, Oriented x3, No Motor/Sensory Deficits, Normal Mood/Affect, executive housekeeper II-XII Norm as Tested Skin: Normal Color, Warm/Dry Results Lab Laboratory Tests 01/30/19 23:38 Assessment/Plan Assessment/Plan Acute Bilateral PE - provoked -Pt is currently on Eliquis -Eliquis 10mg BID x 7days then 5mg PO BID -Pt will need at least 3-6months of anticoagulation -Check Bilat LE dopplers and echo -oxygen femur fracture in November surgically repaired at [facility] GARRISON HAWKINS DO January 31, 2019 08:47
[2019-01-31] MEDS ORDERED: METH750T3 PO (09:35)
[2019-01-31] MEDS ORDERED: GLUC-115 PO (09:35)
[2019-01-31] MEDS ORDERED: LOVA20TA2 PO (09:35)
[2019-01-31] MEDS ORDERED: ALPR0.254 PO (09:35)
[2019-01-31] MEDS ORDERED: MIRA50TA PO (09:35)
[2019-01-31] MEDS ORDERED: LATA2.5D5 OS (09:35)
[2019-01-31] MEDS ORDERED: MV,M1TAB4 PO (09:35)
[2019-01-31] MEDS ORDERED: FLUO20CA25 PO (09:35)
[2019-01-31] MEDS ORDERED: ASPI-983 PO (09:35)
[2019-01-31] MEDS ORDERED: MAGN250T13 PO (09:35)
--- NOTE | 2019-01-31 09:37 | NUR ---
PATIENT STATES HIS GAVE THE NURSE A LIST OF MEDICATIONS AND IT IS UP TO DATE. I UPDATED THE MED REC WITH THE LIST ON THE PATIENTS CHART, I COMPARED IT WITH THE EXT MED HX. THE ALPRAZOLAM IS FILLED #84 FOR A 28 DAY SUPPLY HOWEVER THE LIST STATES HE ONLY TAKES IT BID. METHOCARBAMOL IS FILLED Q6H HOWEVER THE LIST STATES BID ONLY. THE LIST ALSO STATES THE LATANOPROST IS LEFT EYE ONLY. OTC MEDS: GLUCOSAMINE CHONDROITIN BID ASPIRIN 81MG HS MAGNESIUM 250MG DAILY MTV DAILY
--- NOTE | 2019-01-31 10:06 | Consultation (Surgery) ---
History of Present Illness History of Present Illness Patient Consulted On(gertrude/time) 01/31/19 10:00 Time Seen by Provider: 09:40 History of Present Illness Surgery asked to consult regarding rectal bleed ?? hemorrhoids. HPI per ED: This 79 year old gentleman presents to the ER by private vehicle for reasons of shortness of air and anxiety. He also reported a brief episode of right lower chest pain about the time he arrived to the ER. That pain is now gone. Patient had a femur fracture in November of this year that was surgically repaired at [facility]. He called 911 earlier in the evening because of a "panic attack" and shortness of breath. He was assessed at the home but did not come to the ER. He later decided to come to the ER when symptoms worsened again. He has had increasing difficulties with shortness of breath over the last several months but his shortness of breath became acutely worse tonight. He denies any cough or fever. He denies any calf pain or swelling. When I saw pt this am he states he was admitted for pulmonary embolus and had history of what he calls "bleeding from hemorrhoids a week ago". He has been started on anti-coagulation. He states no bleeding since that time. He thinks he had a colonoscopy about 10 years ago. He denies any abdominal pain or rectal pain at this time. He states he gets bleeding about 6 times a year; "they come in spells". Allergies and Home Medications Allergies Coded Allergies: No Known Drug Allergies (Unverified , 11/30/18) Home Medications Alprazolam 0.25 Mg Tablet, 0.25 MG PO BID, (Reported) Aspirin 81 Mg Tablet.dr, 81 MG PO HS, (Reported) Fluoxetine HCl 20 Mg Capsule, 20 MG PO HS, (Reported) Gluc Garcia Dipo Ch/Scooter Garcia/C/Artis 1 Each Tablet, 1 TAB PO BID, (Reported) Latanoprost 2.5 Ml Drops, 1 DROP OS HS, (Reported) Lovastatin 20 Mg Tablet, 20 MG PO HS, (Reported) Magnesium Oxide 250 Mg Tablet, 250 MG PO DAILY, (Reported) Methocarbamol 750 Mg Tablet, 750 MG PO BID, (Reported) Mirabegron 50 Mg Tab.er.24h, 50 MG PO DAILY, (Reported) Mv,Minerals/FA/Lycopene/Ginkgo 1 Each Tablet, 1 TAB PO DAILY, (Reported) Patient Home Medication List Home Medication List Reviewed: Yes Past Ycebpyt-Oqvknb-Ojdlrv Hx Patient Social History Alcohol Use: Rarely Uses Recreational Drug Use: No Smoking Status: Former Smoker 2nd Hand Smoke Exposure: No Recent Foreign Travel: No Contact w/Someone Who Travel: No Recent Infectious Disease Expo: No Recent Hopitalizations: No Seasonal Allergies Seasonal Allergies: No Surgeries History of Surgeries: Yes Surgeries: Appendectomy, Eye Surgery, Orthopedic Respiratory History of Respiratory Disorde: No Cardiovascular History of Cardiac Disorders: No Neurological History of Neurological Disord: No Genitourinary History of Genitourinary Disor: No Gastrointestinal History of Gastrointestinal Di: Yes Gastrointestinal Disorders: Diverticulosis, Hemorrhoids Musculoskeletal History of Musculoskeletal Dis: Yes Musculoskeletal Disorders: Arthritis Endocrine History of Endocrine Disorders: Yes HEENT History of HEENT Disorders: Yes HEENT Disorders: Cataract Cancer History of Cancer: Yes Cancer: Skin Psychosocial History of Psychiatric Problem: No Integumentary History of Skin or Integumenta: No Blood Transfusions History of Blood Disorders: No Family Medical History Significant Family History: Heart Disease, Diabetes, Other Conditions/Hx (Pt states his father had hemorrhoids and bleeding also) Family Medial History: Completed stroke 19 FATHER Diabetes mellitus 19 MOTHER G8 SISTER Review of Systems-General Constitutional: No chills, No diaphoresis; weakness EENTM: No blurred vision, No double vision, No mouth pain, No mouth swelling, No epistaxis, No throat swelling Respiratory: dyspnea on exertion; No hemoptysis; orthopnea, short of breath Cardiovascular: chest pain; No edema; palpitations Gastrointestinal: No abdominal pain, No constipation, No jaundice, No nausea, No vomiting Genitourinary: No dysuria, No frequency, No hematuria Musculoskeletal: joint pain, joint swelling, muscle stiffness Skin: No change in color, No change in hair/nails; hx of skin cancer Psychiatric/Neurological: Anxiety, Depressed; Denies Seizure, Denies Tremors Other pt denies any history of abnormal bleeding or bruising Physical Exam-General Problems Physical Exam Vital Signs Vital Signs - First Documented 01/30/19 01/30/19 01/31/19 23:47 23:53 05:20 Temp 98.0 Pulse 86 Resp 23 B/P (MAP) 126/70 (88) Pulse Ox 95 O2 Delivery Nasal Cannula O2 Flow Rate 2.00 FiO2 28 Capillary Refill : Less Than 3 Seconds General Appearance: WD/WN, no apparent distress Eyes: Bilateral Eye PERRL, Bilateral Eye EOMI HEENT: pharynx normal; No scleral icterus (R), No scleral icterus (L), No pale conjunctivae (R), No pale conjunctivae (L) Neck: non-tender, supple Respiratory: chest non-tender, no respiratory distress, no accessory muscle use, decreased breath sounds Cardiovascular: regular rate, rhythm, no murmur Gastrointestinal: normal bowel sounds, non tender, soft, no organomegaly, no pulsatile mass, other Rectal: normal rectal tone, other (pt has some external hemorrhoidal skin, ??small internal hemorrhoids) Back: no CVA tenderness, no vertebral tenderness Extremities: no pedal edema, no calf tenderness, normal capillary refill Neurologic/Psychiatric: 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 II-XII nml as tested, no motor/sensory deficits, alert, normal mood/affect, oriented x 3 Skin: normal color, warm/dry Lymphatic: no adenopathy (neck, axilla or groin) Data Review Labs Laboratory Tests 01/30/19 23:38: White Blood Count 6.9, Red Blood Count 4.71, Hemoglobin 13.5, Hematocrit 42, Mean Corpuscular Volume 89, Mean Corpuscular Hemoglobin 29, Mean Corpuscular Hemoglobin Concent 32, Red Cell Distribution Width 12.5, Platelet Count 169, Mean Platelet Volume 10.1, Neutrophils (%) (Auto) 63, Lymphocytes (%) (Auto) 23, Monocytes (%) (Auto) 10, Eosinophils (%) (Auto) 3, Basophils (%) (Auto) 1, Neutrophils # (Auto) 4.4, Lymphocytes # (Auto) 1.6, Monocytes # (Auto) 0.7, Eosinophils # (Auto) 0.2, Basophils # (Auto) 0.1, Prothrombin Time 14.0, INR Comment 1.0, Activated Partial Thromboplast Time 28, D-Dimer 3.90H, Sodium Level 141, Potassium Level 4.5, Chloride Level 103, Carbon Dioxide Level 24, Anion Gap 14, Blood Urea Nitrogen 22H, Creatinine 0.95, Estimat Glomerular Filtration Rate > 60, BUN/Creatinine Ratio 23, Glucose Level 116H, Calcium Level 9.6, Corrected Calcium 9.4, Magnesium Level 2.1, Total Bilirubin 0.4, Aspartate Amino Transf (AST/SGOT) 19, Alanine Aminotransferase (ALT/SGPT) 15, Alkaline Phosphatase 147H , Myoglobin 35.3, Total Protein 7.3, Albumin 4.3 Assessment/Plan Assessment/Plan Assessment/Plan Bilateral PE Rectal Bleed Pt has bilateral PE most likely from his Orthopedic surgery in November and will need anticoagulation. He has a history of rectal bleed and should get a colonscopy to work it up. Most likely his problem is hemorrhoids, but it could also be diverticular bleed or even something else since he hasn't had colonoscopy in a while. I think this can probably be worked up as an outpt unless he starts to bleed again while on his anticoagulation. If that occurs we can prep him and do it in the hospital. Clinical Quality Measures DVT/VTE Risk/Contraindication: Risk Factor Score Per Nursin RFS Level Per Nursing on Admit: 4+=Very High YUMIKO SMITH DO January 31, 2019 10:06
[2019-01-31 10:18] LABS: ABG BASE EXCESS 1.2 MMOL/L (-2.5-2.5); ABG OXYGEN SATURATION 97 % (94-100); ABG PCO2 41 MMHG (35-45); ABG PH 7.41 (7.37-7.43); ABG PO2 79 MMHG (79-93); ABG TCO2 26.7 MMOL/L (21.0-31.0)
[2019-01-31 10:19] LABS: ALLENS TEST YES-POS; INSPIRED O2 2; PATIENT TEMP 97.8; VENTILATOR NO
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
[2019-01-31 11:30] VITALS: BP 123/67
[2019-01-31 12:12] LABS: CHOLESTEROL 145 MG/DL (< 200); HDL CHOLESTEROL 41 MG/DL (40-60); TRIGLYCERIDES 70 MG/DL (<150); VLDL CHOLESTEROL 14 MG/DL (5-40)
--- NOTE | 2019-01-31 14:17 | Diagnostic Imaging Report ---
PROCEDURE: US Venous Lower Ext Javon. TECHNIQUE: Multiple real-time grayscale images were obtained over the lower extremities in various projections, bilaterally. Additional duplex Doppler and color Doppler images were also obtained. INDICATION: PE FINDINGS: Femoral popliteal deep venous system bilaterally was widely patent. No deep or superficial thrombus. No mass or fluid collection. Normal compressibility, color flow and waveforms confirmed. IMPRESSION: Normal negative bilateral lower extremity venous Doppler and ultrasound exam. Dictated by: Dictated on workstation # [id number]
[2019-01-31 16:08] VITALS: BP 128/61
[2019-01-31 19:40] VITALS: BP 128/69
[2019-01-31] MEDS: METHOCARBAMOL 750 MG (ROBAXIN) TAB PO SCH (20:28)
[2019-01-31] MEDS ORDERED: SIMvastatin 10 MG (ZOCOR) TAB PO SCH (21:00)
[2019-01-31] MEDS ORDERED: NON-FORMULARY MEDICATION 1 EA EA (Lovastatin 20 MG) PO SCH (21:00)
[2019-01-31] MEDS ORDERED: ALPRAZolam 0.25 MG (XANAX) TAB PO SCH (21:00)
[2019-01-31] MEDS ORDERED: NON-FORMULARY MEDICATION 1 EA EA (Methocarbamol 750 MG) PO SCH (21:00)
[2019-01-31] MEDS ORDERED: FLUoxetine HCL 20 MG (PROzac) CAP PO SCH (21:00)
[2019-01-31] MEDS ORDERED: LATANOPROST 0.005% (XALATAN) OPHTH SOLN 2.5 ML OS SCH (21:00)
[2019-01-31] MEDS ORDERED: ASPIRIN E.C. 81 MG (ECOTRIN) TAB PO SCH (21:00)
[2019-02-01 00:15] VITALS: BP 118/64
[2019-02-01 04:00] VITALS: BP 112/64
--- NOTE | 2019-02-01 06:24 | Pulmonary Progress Note ---
Subjective Time Seen by a Provider: 06:24 Sepsis Event Evaluation Height, Weight, BMI Height: 6'0.00" Weight: 194lbs. 4.8oz. 88.782490dn; 26.4 BMI Method:Stated Exam Exam Vital Signs Date Time Temp Pulse Resp B/P (MAP) Pulse Ox O2 Delivery O2 Flow Rate FiO2 02/01/19 04:00 97.6 76 18 112/64 (80) 96 Nasal Cannula 2.00 02/01/19 01:00 71 02/01/19 00:15 98.0 72 20 118/64 (82) 96 Nasal Cannula 2.00 01/31/19 20:00 Room Air 01/31/19 19:40 97.8 80 20 128/69 (88) 95 Nasal Cannula 2.00 01/31/19 19:00 Nasal Cannula 2.00 01/31/19 19:00 70 01/31/19 16:08 98.4 72 22 128/61 (83) 95 Nasal Cannula 2.00 01/31/19 12:54 76 01/31/19 11:30 98.0 73 20 123/67 (85) 95 Nasal Cannula 2.00 01/31/19 08:20 97.6 81 18 112/68 (83) 96 Nasal Cannula 2.00 01/31/19 08:00 Room Air 01/31/19 07:00 68 01/31/19 06:48 92 Nasal Cannula 2.00 I & O 02/01/19 07:00 Intake Total 1190 ml Balance 1190 ml Height & Weight Height: 6'0.00" Weight: 194lbs. 4.8oz. 88.648562dh; 26.4 BMI Method:Stated General Appearance: No Apparent Distress, WD/WN, Chronically ill, Thin, Other (wearing O2) HEENT: PERRL/EOMI, Normal ENT Inspection, Pharynx Normal, Moist Mucous Membranes Neck: Full Range of Motion, Normal Inspection, Non Tender Respiratory: Chest Non Tender, Lungs Clear, Normal Breath Sounds, No Accessory Muscle Use, No Respiratory Distress Cardiovascular: Regular Rate, Rhythm, No Edema, No Gallop, No JVD, No Murmur, Normal Peripheral Pulses Capillary Refill: Less Than 3 Seconds Gastrointestinal: normal bowel sounds, non tender, soft, no organomegaly, no pulsatile mass, other Extremity: Normal Capillary Refill, Normal Inspection, Normal Range of Motion, Non Tender, No Calf Tenderness, No Pedal Edema Neurologic/Psychiatric: Alert, Oriented x3, No Motor/Sensory Deficits, Normal Mood/Affect Skin: Normal Color, Warm/Dry Lymphatic: No Adenopathy Results Lab Laboratory Tests 01/30/19 23:38 Assessment/Plan Assessment/Plan Acute Bilateral PE - provoked -Pt is currently on Eliquis -Eliquis 10mg BID x 7days then 5mg PO BID -Labs pending -Pt will need at least 3-6months of anticoagulation - Bilat LE dopplers - are negative echo- Grade 1 diastolic dysfunction -oxygen -Will check 02 qualification testing femur fracture in November surgically repaired at [facility] GARRISON HAWKINS DO February 01, 2019 06:24
[2019-02-01 06:41] LABS: BASOPHILS # (AUTO) 0.1 10^3/uL (0.0-0.1); BASOPHILS % (AUTO) 1 % (0-10); EOSINOPHILS # (AUTO) 0.3 10^3/uL (0.0-0.3); EOSINOPHILS % (AUTO) 5 % (0-10); HEMATOCRIT 37 % (40-54); HEMOGLOBIN 12.1 G/DL (13.3-17.7); LYMPHOCYTES # (AUTO) 1.5 X 10^3 (1.0-4.0); LYMPHOCYTES % (AUTO) 28 % (12-44); MEAN CORPUSCULAR HEMOGLOBIN 29 PG (25-34); MEAN CORPUSCULAR HGB CONC 33 G/DL (32-36); MEAN CORPUSCULAR VOLUME 89 FL (80-99); MONOCYTES # (AUTO) 0.7 X 10^3 (0.0-1.0); MONOCYTES % (AUTO) 13 % (0-12); NEUTROPHILS # (AUTO) 2.8 X 10^3 (1.8-7.8); NEUTROPHILS % (AUTO) 53 % (42-75); PLATELET COUNT 148 10^3/uL (130-400); RED CELL DISTRIBUTION WIDTH 12.9 % (10.0-14.5); WHITE BLOOD COUNT 5.2 10^3/uL (4.3-11.0)
[2019-02-01] MEDS ORDERED: MULTIVIT W/MINERALS TAB (THERAGRAN M) PO SCH (07:00)
[2019-02-01 07:10] LABS: BUN/CREATININE RATIO 20; CALCIUM 9.1 MG/DL (8.5-10.1); CARBON DIOXIDE 26 MMOL/L (21-32); CHLORIDE 108 MMOL/L (98-107); CREATININE SERUM 0.86 MG/DL (0.60-1.30); GFR ESTIMATED > 60; GLUCOSE 105 MG/DL (70-105); MAGNESIUM 2.1 MG/DL (1.8-2.4); PHOSPHORUS 3.6 MG/DL (2.3-4.7); POTASSIUM 4.1 MMOL/L (3.6-5.0); SODIUM 140 MMOL/L (135-145)
[2019-02-01] MEDS: METHOCARBAMOL 750 MG (ROBAXIN) TAB PO SCH (07:49)
[2019-02-01] MEDS: APIXABAN 5 MG (ELIQUIS) TABLET PO SCH (07:50)
[2019-02-01] MEDS: FLUoxetine HCL 20 MG (PROzac) CAP PO SCH (07:50)
[2019-02-01] MEDS ORDERED: MAGNESIUM OXIDE (MAG-OX)400 MG TAB PO SCH (08:00)
[2019-02-01 08:08] VITALS: BP 126/69
[2019-02-01] MEDS ORDERED: [UNRECOGNIZED DRUG - OTHER] PO SCH (09:00)
[2019-02-01] MEDS ORDERED: MV MINERALS PO SCH (09:00)
[2019-02-01] MEDS ORDERED: NON-FORMULARY MEDICATION 1 EA EA (Magnesium Oxide (Magnesium) 250 MG) PO SCH (09:00)
[2019-02-01] MEDS ORDERED: GINKGO PO SCH (09:00)
[2019-02-01] MEDS ORDERED: NON-FORMULARY MEDICATION 1 EA EA (Mirabegron (Myrbetriq) 50 MG) PO SCH (09:00)
[2019-02-01] MEDS ORDERED: LYCOPENE PO SCH (09:00)
[2019-02-01] MEDS ORDERED: APIX5TAB PO (09:59)
--- NOTE | 2019-02-01 10:53 | Discharge Summary-Hospitalist ---
Diagnosis/Chief Complaint Date of Admission January 31, 2019 at 01:56 Date of Discharge Discharge Date: February 01, 2019 Admission Diagnosis Assessment: Bilateral PE's Recent right femur surgery 12/06/18 maintained on crutches until last week maintained on ASA daily Hypoxia Hemorrhoids with regular bleeding Anticoagulation required for 3 months BPH managed by Dr Ferraro Plan: ECHO Doppler USG legs Eliquis Consult Dr Davenport and Dr Vang Discharge Diagnosis (1) Bilateral pulmonary embolism Status: Acute (2) Hypoxia Status: Acute (3) BPH (benign prostatic hyperplasia) Status: Chronic (4) Bleeding hemorrhoid Status: Chronic (5) Hematochezia Status: Acute (6) History of femur fracture Status: Chronic Discharge Summary Discharge Physical Exam Allergies: Coded Allergies: No Known Drug Allergies (Unverified , 11/30/18) Vitals & I&Os Vital Signs Date Time Temp Pulse Resp B/P (MAP) Pulse Ox O2 Delivery O2 Flow Rate FiO2 02/01/19 08:08 97.4 86 20 126/69 (88) 94 Nasal Cannula 1.00 01/31/19 05:20 28 General Appearance: No Apparent Distress, WD/WN Respiratory: Chest Non Tender, Lungs Clear, Normal Breath Sounds, No Accessory Muscle Use, No Respiratory Distress Cardiovascular: Regular Rate, Rhythm, No Edema, No Gallop, No JVD, No Murmur, Normal Peripheral Pulses Neurologic/Psychiatric: Alert, Oriented x3, No Motor/Sensory Deficits, Normal Mood/Affect Hospital Course Was the Problem List Reviewed?: Yes Hospital Course: Pt had an uneventful hospital course when he was admitted for hypoxia from [facility] and new onset pulmonary emboli. Echocardiogram showed mild diastolic dysfunction. Pt maintained on oxygen during the hospital course but did not require that at DC for home. Pt was placed on Elequis empirically and tolerated that well. Venous Doppler Ultrasound showed no evidence of any DVT of the right leg in which he had surgery on in November and just recently got off crutches but likely there was a DVT there that went up into the pulmonary vessels. Hemorrhoid bleeding and rectal bleeding discussed. Dr. Ford was consulted and he will arrange for follow up for colonoscopy and hemorrhoid banding if needed since anticoagulation can cause the bleeding issue that he has every month to become a profound problem for him. at the bedside and updated on the plan. Labs (last 24 hrs) Laboratory Tests 02/01/19 06:32: White Blood Count 5.2, Red Blood Count 4.19L, Hemoglobin 12.1L, Hematocrit 37L, Mean Corpuscular Volume 89, Mean Corpuscular Hemoglobin 29, Mean Corpuscular Hemoglobin Concent 33, Red Cell Distribution Width 12.9, Platelet Count 148, Mean Platelet Volume 10.0, Neutrophils (%) (Auto) 53, Lymphocytes (%) (Auto) 28, Monocytes (%) (Auto) 13H, Eosinophils (%) (Auto) 5, Basophils (%) (Auto) 1, Neutrophils # (Auto) 2.8, Lymphocytes # (Auto) 1.5, Monocytes # (Auto) 0.7, Eosinophils # (Auto) 0.3, Basophils # (Auto) 0.1, Sodium Level 140, Potassium Level 4.1, Chloride Level 108H, Carbon Dioxide Level 26, Anion Gap 6, Blood Urea Nitrogen 17, Creatinine 0.86, Estimat Glomerular Filtration Rate > 60, BUN/Creatinine Ratio 20, Glucose Level 105, Calcium Level 9.1, Phosphorus Level 3.6, Magnesium Level 2.1 Patient resulted labs reviewed. Pending Labs Discussion & Recommendations Discharge Planning: <30 minutes discharge planning Discharge Home Medications: Active Scripts Active Eliquis (Apixaban) 5 Mg Tablet 10 Mg PO BID Take 2 pills BID for 5 days then 1 pill BID for 3 months Reported Alprazolam 0.25 Mg Tablet 0.25 Mg PO BID Methocarbamol 750 Mg Tablet 750 Mg PO BID Myrbetriq (Mirabegron) 50 Mg Tab.er.24h 50 Mg PO DAILY One Daily Men's 50+ Tablet (Mv,Minerals/FA/Lycopene/Ginkgo) 1 Each Tablet 1 Tab PO DAILY Magnesium (Magnesium Oxide) 250 Mg Tablet 250 Mg PO DAILY Aspirin EC (Aspirin) 81 Mg Tablet.dr 81 Mg PO HS Lovastatin 20 Mg Tablet 20 Mg PO HS Latanoprost 2.5 Ml Drops 1 Drop OS HS Glucosamine Chondroitin Caplet (Gluc Garcia Dipo Ch/Scooter Garcia/C/Artis) 1 Each Tablet 1 Tab PO BID Fluoxetine HCl 20 Mg Capsule 20 Mg PO HS Instructions to patient/family Please see electronic discharge instructions given to patient. Clinical Quality Measures DVT/VTE Risk/Contraindication: Risk Factor Score Per Nursin RFS Level Per Nursing on Admit: 4+=Very High Problem Qualifiers (1) BPH (benign prostatic hyperplasia): Lower urinary tract symptom presence: symptoms present Lower urinary tract symptom detail: urinary frequency Qualified Codes: N40.1 - Benign prostatic hyperplasia with lower urinary tract symptoms; R35.0 - Frequency of micturition ABIMAEL ANTHONY DO February 01, 2019 10:53
--- NOTE | 2019-02-01 11:05 | NUR ---
SpO2 did not drop below 88% during exercise without oxygen.
--- NOTE | 2019-02-01 11:29 | Progress Note ---
Subjective Time Seen by a Provider: 11:20 Subjective/Events-last exam Pt seen and examined, states he has not had any rectal bleeding. Breathing is ok and they are going to send him home today. Review of Systems General: No Chills, No Night Sweats Pulmonary: Dyspnea Cardiovascular: No: Chest Pain, Palpitations Gastrointestinal: No: Nausea, Vomiting Objective Exam Vital Signs Date Time Temp Pulse Resp B/P (MAP) Pulse Ox O2 Delivery O2 Flow Rate FiO2 02/01/19 08:08 97.4 86 20 126/69 (88) 94 Nasal Cannula 1.00 02/01/19 08:03 Nasal Cannula 2.00 02/01/19 07:10 65 02/01/19 07:03 95 Nasal Cannula 2.00 02/01/19 04:00 97.6 76 18 112/64 (80) 96 Nasal Cannula 2.00 02/01/19 01:00 71 02/01/19 00:15 98.0 72 20 118/64 (82) 96 Nasal Cannula 2.00 01/31/19 20:00 Room Air 01/31/19 19:40 97.8 80 20 128/69 (88) 95 Nasal Cannula 2.00 01/31/19 19:00 Nasal Cannula 2.00 01/31/19 19:00 70 01/31/19 16:08 98.4 72 22 128/61 (83) 95 Nasal Cannula 2.00 01/31/19 12:54 76 01/31/19 11:30 98.0 73 20 123/67 (85) 95 Nasal Cannula 2.00 I & O 02/01/19 07:00 Intake Total 1190 ml Balance 1190 ml Capillary Refill : Less Than 3 Seconds General Appearance: No Apparent Distress, WD/WN, Chronically ill, Thin HEENT: PERRL/EOMI, Moist Mucous Membranes Respiratory: Chest Non Tender, Lungs Clear, Normal Breath Sounds, No Accessory Muscle Use, No Respiratory Distress Cardiovascular: Regular Rate, Rhythm, No Edema, No Gallop, No JVD, No Murmur, Normal Peripheral Pulses Gastrointestinal: normal bowel sounds, non tender, soft, no organomegaly, no pulsatile mass, other Extremity: Normal Capillary Refill, Non Tender, No Calf Tenderness, No Pedal Edema Neurologic/Psychiatric: Alert, Oriented x3, No Motor/Sensory Deficits, Normal Mood/Affect Skin: Normal Color, Warm/Dry Results Lab Laboratory Tests 02/01/19 06:32: White Blood Count 5.2, Red Blood Count 4.19L, Hemoglobin 12.1L, Hematocrit 37L, Mean Corpuscular Volume 89, Mean Corpuscular Hemoglobin 29, Mean Corpuscular Hemoglobin Concent 33, Red Cell Distribution Width 12.9, Platelet Count 148, Mean Platelet Volume 10.0, Neutrophils (%) (Auto) 53, Lymphocytes (%) (Auto) 28, Monocytes (%) (Auto) 13H, Eosinophils (%) (Auto) 5, Basophils (%) (Auto) 1, Neutrophils # (Auto) 2.8, Lymphocytes # (Auto) 1.5, Monocytes # (Auto) 0.7, Eosinophils # (Auto) 0.3, Basophils # (Auto) 0.1, Sodium Level 140, Potassium Level 4.1, Chloride Level 108H, Carbon Dioxide Level 26, Anion Gap 6, Blood Urea Nitrogen 17, Creatinine 0.86, Estimat Glomerular Filtration Rate > 60, BUN/Creatinine Ratio 20, Glucose Level 105, Calcium Level 9.1, Phosphorus Level 3.6, Magnesium Level 2.1 Assessment/Plan Assessment/Plan Assessment/Plan Bilateral PE Rectal Bleed I spoke with pt and his , I'd like to see him in my office in a month or so to plan colonoscopy. He agreed and I will have my office call him. Clinical Quality Measures DVT/VTE Risk/Contraindication: Risk Factor Score Per Nursin RFS Level Per Nursing on Admit: 4+=Very High YUMIKO SMITH DO February 01, 2019 11:29
--- NOTE | 2019-02-01 11:50 | NUR ---
RUDY JORGENSEN demonstrates understanding of discharge instructions and accurately returns instructions upon questioning. Copy of Post-Discharge Instructions and Medication Discharge Instructions given to PATIENT AND FAMILY. RUDY JORGENSEN is able to manage continuing needs after discharge. Patients belongings returned to PATIENT AND FAMILY. Skin dry and intact; no breakdown noted. Patient discharged from [facility] on 02/01/19 at 1150. RUDY JORGENSEN left floor via WHEELCHAIR, accompanied by FAMILY AND STAFF.
--- NOTE | 2019-02-01 13:11 | NUR ---
CM/SS, respond to consult for Rx, Eusebio. Patient's Rx was transmitted to [facility]. Music Professor contacted this pharmacy and found that patient's OOP cost was $737.99. Provided a [facility] FREE 30 day supply card and also website for further exploration of patient assistance program. Stressed with patient and spouse the importance of continuing the Rx as prescribed and to begin research on whether they would qualify for a discount beyond the first month.
== END 2019-02-01 10:00 | disposition home or self-care (01) ==
LOC: EDUNIT# 23:06 → ER FS 23:08 → UNDOADMOB 01-31 01:56 → 4TH 01-31 01:56 → UNDODISOB 02-01 11:50
PROVIDERS: ADMIT Family Medicine; ATTEND Family Medicine
DX: I26.99 Other pulmonary embolism without acute cor pulmonale (principal); K64.9 Unspecified hemorrhoids; N40.1 Benign prostatic hyperplasia with lower urinary tract symptoms; R35.0 Frequency of micturition; R09.02 Hypoxemia; K92.1 Melena; K57.30 Diverticulosis of large intestine without perforation or abscess without bleeding; Z66 Do not resuscitate; Z79.82 Long term (current) use of aspirin; Z79.899 Other long term (current) drug therapy; Z79.01 Long term (current) use of anticoagulants; Z85.828 Personal history of other malignant neoplasm of skin; Z87.891 Personal history of nicotine dependence; Z98.890 Other specified postprocedural states
CPT/HCPCS: 36415; 71045; 71275; 80048; 80053; 80061; 82805; 83735; 83874; 84100; 84484; 85025; 85379; 85610; 85730; 93005; 93306; 93970; 94760; 94761; G0378

== ENCOUNTER 2019-02-04 23:01 | Emergency (ER) | payer MEDICARE ==
[~2019-02-04] VITALS: Ht 182.9 cm; Wt 88.5 kg
[~2019-02-04 23:01] MED LIST: ALPR0.254 PO; APIX5TAB PO; ASPI-983 PO; FLUO20CA25 PO; GLUC-115 PO; LATA2.5D5 OS; LOVA20TA2 PO; MAGN250T13 PO; METH750T3 PO; MIRA50TA PO; MV,M1TAB4 PO
--- OUTSIDE RECORDS SUMMARY | 2019-02-04 23:06 | XMS REPORT | Continuity of Care Document ---
Author Organization Unknown Address Unknown Allergies Active Description Code Type Severity Reaction Onset Reported/Identified Relationship to Patient Clinical Status Yes No Known Drug Allergies [id number] Drug Allergy Unknown N/A 11/30/2018 Medications There is no data. Problems Date Dx Coded Attending Type Code Diagnosis Diagnosed By 12/01/2018 DAYANARA HERNANDEZ DO Ot M25.561 PAIN IN RIGHT KNEE 12/01/2018 [facility], DAYANARA Ot S09.90XA UNSPECIFIED INJURY OF HEAD, INITIAL ENCO 12/01/2018 [facility], DAYANARA Ot S72.451A DISPL SUPRCNDL FX W/O INTRCNDL EXTN LOWE 12/01/2018 [facility], DAYANARA Ot W55.89XA OTHER CONTACT WITH OTHER MAMMALS, INITIA 12/03/2018 [facility], DAYANARA Ot M25.561 PAIN IN RIGHT KNEE 12/03/2018 [facility], DAYANARA Ot S09.90XA UNSPECIFIED INJURY OF HEAD, INITIAL ENCO 12/03/2018 [facility], DAYANARA Ot S72.451A DISPL SUPRCNDL FX W/O INTRCNDL EXTN LOWE 12/03/2018 [facility], DAYANARA Ot W55.89XA OTHER CONTACT WITH OTHER MAMMALS, INITIA Procedures There is no data. Results Test Result Range Complete blood count (CBC) with automated white blood cell (WBC) differential - 11/30/18 14:35 Blood leukocytes automated count (number/volume) 8.1 10*3/uL 4.3-11.0 Blood erythrocytes automated count (number/volume) 5.09 10*6/uL 4.35-5.85 Venous blood hemoglobin measurement (mass/volume) 14.7 g/dL 13.3-17.7 Blood hematocrit (volume fraction) 45 % 40-54 Automated erythrocyte mean corpuscular volume 88 [foz_us] 80-99 Automated erythrocyte mean corpuscular hemoglobin (mass per erythrocyte) 29 pg 25-34 Automated erythrocyte mean corpuscular hemoglobin concentration measurement (mass/volume) 33 g/dL 32-36 Automated erythrocyte distribution width ratio 12.1 % 10.0- 14.5 Automated blood platelet count (count/volume) 181 10*3/uL 130-400 Automated blood platelet mean volume measurement 10.5 [foz_us] 7.4-10.4 Automated blood neutrophils/100 leukocytes 46 % 42-75 Automated blood lymphocytes/100 leukocytes 44 % 12-44 Blood monocytes/100 leukocytes 8 % 0-12 Automated blood eosinophils/100 leukocytes 1 % 0-10 Automated blood basophils/100 leukocytes 1 % 0-10 Blood neutrophils automated count (number/volume) 3.7 10*3 1.8-7.8 Blood lymphocytes automated count (number/volume) 3.5 10*3 1.0-4.0 Blood monocytes automated count (number/volume) 0.7 10*3 0.0- 1.0 Automated eosinophil count 0.1 10*3/uL 0.0-0.3 Automated blood basophil count (count/volume) 0.1 10*3/uL 0.0-0.1 Comprehensive metabolic panel - 11/30/18 14:35 Serum or plasma sodium measurement (moles/volume) 141 mmol/L 135-145 Serum or plasma potassium measurement (moles/volume) 4.1 mmol/L 3.6-5.0 Serum or plasma chloride measurement (moles/volume) 103 mmol/L 98-107 Carbon dioxide 23 mmol/L 21-32 Serum or plasma anion gap determination (moles/volume) 15 mmol/L 5-14 Serum or plasma urea nitrogen measurement (mass/volume) 22 mg/dL 7-18 Serum or plasma creatinine measurement (mass/volume) 1.07 mg/dL 0.60-1.30 Serum or plasma urea nitrogen/creatinine mass ratio 21 NRG Serum or plasma creatinine measurement with calculation of estimated glomerular filtration rate > NRG Serum or plasma glucose measurement (mass/volume) 137 mg/dL 70-105 Serum or plasma calcium measurement (mass/volume) 9.6 mg/dL 8.5-10.1 Serum or plasma total bilirubin measurement (mass/volume) 1.1 mg/dL 0.1-1.0 Serum or plasma alkaline phosphatase measurement (enzymatic activity/volume) 88 U/L 40-136 Serum or plasma aspartate aminotransferase measurement (enzymatic activity/volume) 38 U/L 5-34 Serum or plasma alanine aminotransferase measurement (enzymatic activity/volume) 23 U/L 0-55 Serum or plasma protein measurement (mass/volume) 7.3 g/dL 6.4-8.2 Serum or plasma albumin measurement (mass/volume) 4.4 g/dL 3.2-4.5 CALCIUM CORRECTED 9.3 mg/dL 8.5-10.1 Blood CBC with ordered manual differential panel - 11/30/18 14:35 Blood monocytes/100 leukocytes 8 % NRG Manual blood segmented neutrophils/100 leukocytes 40 % NRG Blood band neutrophils/100 leukocytes 7 % NRG Manual blood lymphocytes/100 leukocytes 43 % NRG Manual eosinophils/100 leukocytes in nose 1 % NRG Manual blood basophils/100 leukocytes 1 % NRG PT panel in platelet poor plasma by coagulation assay - 11/30/18 14:55 Prothrombin time (PT) in platelet poor plasma by coagulation assay 14.0 s 12.2-14.7 INR in platelet poor plasma or blood by coagulation assay 1.1 0.8-1.4 Activated partial thromboplastin time (aPTT) in platelet poor plasma bycoagulation assay - 11/30/18 14:55 Activated partial thromboplastin time (aPTT) in platelet poor plasma bycoagulation assay 25 s 24-35 TROPONIN T - 01/30/19 00:00 TROPONIN T 15 % <=15 Complete blood count (CBC) with automated white blood cell (WBC) differential - 01/30/19 23:38 Blood leukocytes automated count (number/volume) 6.9 10*3/uL 4.3-11.0 Blood erythrocytes automated count (number/volume) 4.71 10*6/uL 4.35-5.85 Venous blood hemoglobin measurement (mass/volume) 13.5 g/dL 13.3-17.7 Blood hematocrit (volume fraction) 42 % 40-54 Automated erythrocyte mean corpuscular volume 89 [foz_us] 80-99 Automated erythrocyte mean corpuscular hemoglobin (mass per erythrocyte) 29 pg 25-34 Automated erythrocyte mean corpuscular hemoglobin concentration measurement (mass/volume) 32 g/dL 32-36 Automated erythrocyte distribution width ratio 12.5 % 10.0- 14.5 Automated blood platelet count (count/volume) 169 10*3/uL 130-400 Automated blood platelet mean volume measurement 10.1 [foz_us] 7.4-10.4 Automated blood neutrophils/100 leukocytes 63 % 42-75 Automated blood lymphocytes/100 leukocytes 23 % 12-44 Blood monocytes/100 leukocytes 10 % 0-12 Automated blood eosinophils/100 leukocytes 3 % 0-10 Automated blood basophils/100 leukocytes 1 % 0-10 Blood neutrophils automated count (number/volume) 4.4 10*3 1.8-7.8 Blood lymphocytes automated count (number/volume) 1.6 10*3 1.0-4.0 Blood monocytes automated count (number/volume) 0.7 10*3 0.0- 1.0 Automated eosinophil count 0.2 10*3/uL 0.0-0.3 Automated blood basophil count (count/volume) 0.1 10*3/uL 0.0-0.1 PT panel in platelet poor plasma by coagulation assay - 01/30/19 23:38 Prothrombin time (PT) in platelet poor plasma by coagulation assay 14.0 s 12.2-14.7 INR in platelet poor plasma or blood by coagulation assay 1.0 0.8-1.4 Activated partial thromboplastin time (aPTT) in platelet poor plasma bycoagulation assay - 01/30/19 23:38 Activated partial thromboplastin time (aPTT) in platelet poor plasma bycoagulation assay 28 s 24-35 Fibrin D-dimer FEU measurement in platelet poor plasma (mass/volume) - 01/30/19 23:38 Fibrin D-dimer FEU measurement in platelet poor plasma (mass/volume) 3.90 ug/mL 0.00-0.49 Comprehensive metabolic panel - 01/30/19 23:38 Serum or plasma sodium measurement (moles/volume) 141 mmol/L 135-145 Serum or plasma potassium measurement (moles/volume) 4.5 mmol/L 3.6-5.0 Serum or plasma chloride measurement (moles/volume) 103 mmol/L 98-107 Carbon dioxide 24 mmol/L 21-32 Serum or plasma anion gap determination (moles/volume) 14 mmol/L 5-14 Serum or plasma urea nitrogen measurement (mass/volume) 22 mg/dL 7-18 Serum or plasma creatinine measurement (mass/volume) 0.95 mg/dL 0.60-1.30 Serum or plasma urea nitrogen/creatinine mass ratio 23 NRG Serum or plasma creatinine measurement with calculation of estimated glomerular filtration rate > NRG Serum or plasma glucose measurement (mass/volume) 116 mg/dL 70-105 Serum or plasma calcium measurement (mass/volume) 9.6 mg/dL 8.5-10.1 Serum or plasma total bilirubin measurement (mass/volume) 0.4 mg/dL 0.1-1.0 Serum or plasma alkaline phosphatase measurement (enzymatic activity/volume) 147 U/L 40-136 Serum or plasma aspartate aminotransferase measurement (enzymatic activity/volume) 19 U/L 5-34 Serum or plasma alanine aminotransferase measurement (enzymatic activity/volume) 15 U/L 0-55 Serum or plasma protein measurement (mass/volume) 7.3 g/dL 6.4-8.2 Serum or plasma albumin measurement (mass/volume) 4.3 g/dL 3.2-4.5 CALCIUM CORRECTED 9.4 mg/dL 8.5-10.1 Magnesium - 01/30/19 23:38 Magnesium 2.1 mg/dL 1.8-2.4 Myoglobin, serum - 01/30/19 23:38 Myoglobin, serum 35.3 ng/mL 10.0-92.0 Lipid 1996 panel - 01/30/19 23:38 Serum or plasma triglyceride measurement (mass/volume) 70 mg/dL <150 Serum or plasma cholesterol measurement (mass/volume) 145 mg/dL < 200 Serum or plasma cholesterol in HDL measurement (mass/volume) 41 mg/dL 40-60 Cholesterol in LDL [mass/volume] in serum or plasma by direct assay 102 mg/dL 1-129 Serum or plasma cholesterol in VLDL measurement (mass/volume) 14 mg/dL 5-40 Arterial blood gas measurement - 01/31/19 10:12 Blood pCO2 41 mm[Hg] 35-45 Blood pO2 79 mm[Hg] 79-93 Arterial blood bicarbonate measurement (moles/volume) 25 mmol/L 23-27 Arterial blood base excess by calculation 1.2 mmol/L -2.5-2.5 Arterial blood oxygen saturation measurement 97 % 94-100 * Inhaled oxygen flow rate 2 NRG Arterial blood pH measurement with patient temperature correction 7.41 7.37-7.43 Arterial blood carbon dioxide, total measurement (moles/volume) 26.7 mmol/L 21.0-31.0 Body site LT RADIAL NRG Assessment of wrist artery patency prior to arterial puncture YES-POS NRG Setting of ventilation mode NO NRG Measurement of body temperature 97.8 NRG Complete blood count (CBC) with automated white blood cell (WBC) differential - 02/01/19 06:32 Blood leukocytes automated count (number/volume) 5.2 10*3/uL 4.3-11.0 Blood erythrocytes automated count (number/volume) 4.19 10*6/uL 4.35-5.85 Venous blood hemoglobin measurement (mass/volume) 12.1 g/dL 13.3-17.7 Blood hematocrit (volume fraction) 37 % 40-54 Automated erythrocyte mean corpuscular volume 89 [foz_us] 80-99 Automated erythrocyte mean corpuscular hemoglobin (mass per erythrocyte) 29 pg 25-34 Automated erythrocyte mean corpuscular hemoglobin concentration measurement (mass/volume) 33 g/dL 32-36 Automated erythrocyte distribution width ratio 12.9 % 10.0- 14.5 Automated blood platelet count (count/volume) 148 10*3/uL 130-400 Automated blood platelet mean volume measurement 10.0 [foz_us] 7.4-10.4 Automated blood neutrophils/100 leukocytes 53 % 42-75 Automated blood lymphocytes/100 leukocytes 28 % 12-44 Blood monocytes/100 leukocytes 13 % 0-12 Automated blood eosinophils/100 leukocytes 5 % 0-10 Automated blood basophils/100 leukocytes 1 % 0-10 Blood neutrophils automated count (number/volume) 2.8 10*3 1.8-7.8 Blood lymphocytes automated count (number/volume) 1.5 10*3 1.0-4.0 Blood monocytes automated count (number/volume) 0.7 10*3 0.0- 1.0 Automated eosinophil count 0.3 10*3/uL 0.0-0.3 Automated blood basophil count (count/volume) 0.1 10*3/uL 0.0-0.1 Whole blood basic metabolic panel - 02/01/19 06:32 Serum or plasma sodium measurement (moles/volume) 140 mmol/L 135-145 Serum or plasma potassium measurement (moles/volume) 4.1 mmol/L 3.6-5.0 Serum or plasma chloride measurement (moles/volume) 108 mmol/L 98-107 Carbon dioxide 26 mmol/L 21-32 Serum or plasma anion gap determination (moles/volume) 6 mmol/L 5-14 Serum or plasma urea nitrogen measurement (mass/volume) 17 mg/dL 7-18 Serum or plasma creatinine measurement (mass/volume) 0.86 mg/dL 0.60-1.30 Serum or plasma urea nitrogen/creatinine mass ratio 20 NRG Serum or plasma creatinine measurement with calculation of estimated glomerular filtration rate > NRG Serum or plasma glucose measurement (mass/volume) 105 mg/dL 70-105 Serum or plasma calcium measurement (mass/volume) 9.1 mg/dL 8.5-10.1 Serum or plasma phosphate measurement (mass/volume) - 02/01/19 06:32 Serum or plasma phosphate measurement (mass/volume) 3.6 mg/dL 2.3-4.7 Magnesium - 02/01/19 06:32 Magnesium 2.1 mg/dL 1.8-2.4 Encounters ACCT No. Visit Date/Time Discharge Status Pt. Type Provider Facility Loc./Unit Complaint [id number] 2019 11:00:00 2019 23:59:59 CLS [facility] [id number] 01/31/2019 01:56:00 02/01/2019 11:50:00 DIS Inpatient OH GUARDADO DO [facility] 4TH BILATERAL PE;HYPOXIA [id number] 11/30/2018 14:33:00 12/01/2018 18:33:00 DIS Emergency DAYANARA HERNANDEZ DO [facility] ER FS RT KNEE INJ
[2019-02-04 23:20] VITALS: BP 127/75
--- NOTE | 2019-02-04 23:23 | NUR ---
pt triaged in triage room, informed of wait time due to volume and busy pts.
[2019-02-05] MEDS ORDERED: LORazepam 0.5 MG (ATIVAN) TABLET PO STA (00:14)
--- NOTE | 2019-02-05 00:20 | ED Psychosocial ---
General Chief Complaint: Psych/Social Disorder Stated Complaint: ANXIETY ATTACK Nursing Triage Note: pt reports anxiety tonight and soa, seen 1 week ago with similar symptoms and was diagnosed with bilateral pe's, pt was known to be hypoxic at that time with o2 sats 86-88%, tonight 02 sats 94% Source: patient, spouse Exam Limitations: no limitations History of Present Illness Date Seen by Provider: February 05, 2019 Time Seen by Provider: 00:01 Initial Comments The patient presents to ER by private conveyance with his with chief complaint of having a panic attack. He was recently diagnosed with a pulmonary embolism bilaterally but is not short of breath or having any chest pain. He is on Eliquis and taking his medications appropriately. Dr. Gresham is his doctor and has put him on Xanax twice a day quarter of a milligram which was working for several years. He has a history of panic attacks for the past 10 years. Here lately however he's had come out to the ER several times because the panic attacks of gotten to be too much for him. He does not see a psychiatrist. He is also on fluoxetine which she is taking routinely. He has an appointment with primary care this Monday. By the time seen by the provider he states that he is feeling the panic attack has pretty much about passed. Allergies and Home Medications Allergies Coded Allergies: No Known Drug Allergies (Unverified , 11/30/18) Home Medications Alprazolam 0.25 Mg Tablet, 0.25 MG PO BID, (Reported) Apixaban 5 Mg Tablet, 10 MG PO BID Take 2 pills BID for 5 days then 1 pill BID for 3 months Prescribed by: ABIMAEL ANTHONY on 02/01/19 0959 Aspirin 81 Mg Tablet.dr, 81 MG PO HS, (Reported) Fluoxetine HCl 20 Mg Capsule, 20 MG PO HS, (Reported) Gluc Garcia Dipo Ch/Scooter Garcia/C/Artis 1 Each Tablet, 1 TAB PO BID, (Reported) Latanoprost 2.5 Ml Drops, 1 DROP OS HS, (Reported) Lorazepam 0.5 Mg Tablet, 0.5 MG PO DAILY PRN for ANXIETY Prescribed by: NESTOR REVELES on 02/05/19 0025 Lovastatin 20 Mg Tablet, 20 MG PO HS, (Reported) Magnesium Oxide 250 Mg Tablet, 250 MG PO DAILY, (Reported) Methocarbamol 750 Mg Tablet, 750 MG PO BID, (Reported) Mirabegron 50 Mg Tab.er.24h, 50 MG PO DAILY, (Reported) Mv,Minerals/FA/Lycopene/Ginkgo 1 Each Tablet, 1 TAB PO DAILY, (Reported) Patient Home Medication List Home Medication List Reviewed: Yes Review of Systems Constitutional: No chills, No diaphoresis EENTM: No ear discharge, No hearing loss, No ear pain Respiratory: No cough, No hemoptysis, No short of breath Cardiovascular: No chest pain, No edema, No palpitations Gastrointestinal: No abdominal pain, No nausea Genitourinary: No discharge, No dysuria Musculoskeletal: No back pain, No joint pain Skin: No pruritus, No rash Past Ekirmuq-Mvhqfh-Czbscg Hx Patient Social History Alcohol Use: Denies Use Recreational Drug Use: No 2nd Hand Smoke Exposure: No Recent Foreign Travel: No Contact w/Someone Who Travel: No Recent Infectious Disease Expo: No Recent Hopitalizations: No Physical Abuse: No Sexual Abuse: No Mistreated: No Fear: No Seasonal Allergies Seasonal Allergies: No Past Medical History Surgeries: Yes Appendectomy, Eye Surgery, Orthopedic Respiratory: No Pulmonary Embolism Cardiac: No Neurological: No Genitourinary: No Gastrointestinal: Yes Diverticulosis, Hemorrhoids Musculoskeletal: Yes Arthritis Endocrine: Yes HEENT: Yes Cataract Cancer: Yes Skin Psychosocial: No Integumentary: No Blood Disorders: No Family Medical History Completed stroke 19 FATHER Diabetes mellitus 19 MOTHER G8 SISTER Heart Disease, Diabetes, Other Conditions/Hx Physical Exam Vital Signs - First Documented 02/04/19 23:20 Temp 98.9 Pulse 89 Resp 24 B/P (MAP) 127/75 (92) Pulse Ox 94 O2 Delivery Room Air Capillary Refill : Less Than 3 Seconds Height, Weight, BMI Height: 6'0" Weight: 195lbs. 4.8oz. [id number]; 26.4 BMI Method:Stated General Appearance: WD/WN, no apparent distress HEENT: PERRL/EOMI, pharynx normal Neck: full range of motion, normal inspection Respiratory: chest non-tender, lungs clear, normal breath sounds, no respiratory distress, no accessory muscle use Cardiovascular: normal peripheral pulses, regular rate, rhythm, no edema Extremities: non-tender, normal capillary refill Neurologic/Psychiatric: alert, normal mood/affect, oriented x 3 Appearance/Memory: appropriate appearance, appropriate insight, no memory impairment Behavior/Eye Contact: cooperative, good eye contact, normal speech Thoughts/Hallucinations: normal thought pattern, no apparent hallucination, other (anxious) Skin: normal color, warm/dry Progress/Results/Core Measures Results/Orders My Orders Orders - NESTOR REVELES Ekg Tracing (02/04/19 23:36) Lorazepam Tablet (Ativan Tablet) (02/05/19 00:14) Vital Signs/I&O 02/04/19 02/05/19 23:20 00:05 Temp 98.9 98.9 Pulse 89 89 Resp 24 24 B/P (MAP) 127/75 (92) 127/75 (92) Pulse Ox 94 94 O2 Delivery Room Air Room Air Blood Pressure Mean: 92 Progress Progress Note : Time: 00:17 Progress Note Plan to give him a dose of one half milligram Ativan. He's been instructed that if he wakes up groggy he can cut that in half. We'll provide them with a prescription for a when necessary one time a day Ativan 1/4 - 1/2 milligram for panic attack. Right now he does not have a when necessary dose just scheduled dosing. He tried taking a third when necessary dose yesterday and that helped significantly but it did not completely abort his panic attack. He may need a higher dose. He may also need an increase in his fluoxetine. We discussed these things and he would like to discuss follow-up next her dose of Ativan a day works with his primary care doctor at the scheduled appointment on Monday. He has aseptic vital signs without tachycardia or hypoxia. Initial ECG Impression Date: February 04, 2019 Initial ECG Impression Time: 23:29 Initial ECG Rate: 77 Initial ECG Rhythm: Normal Sinus Initial ECG Intervals: Normal Initial ECG Impression: Normal Comment No clinically significant ST elevation or depression. Minor respiratory artifact. Departure Impression Primary Impression: Anxiety Additional Impression: Panic disorder Disposition: 01 HOME, SELF-CARE Condition: Improved Departure-Patient Inst. Decision time for Depature: 00:23 Referrals: SELF,CHRIS GRANT (PCP/Family) Primary Care Physician Patient Instructions: Panic Disorder (DC) Add. Discharge Instructions: In addition to your daily dosing of alprazolam you can take one extra tablet or half of a tablet as you see fit daily at the first signs of a panic attack coming on. Discuss with your primary care doctor how this worked for you. If you feel groggy in the morning after taking the tablet in the should probably cut the tablet in half. Discuss whether you should increase your fluoxetine. Discuss whether counseling or even a referral to psychiatry would be beneficial to you. Return to the nearest ER if you begin to have shortness of breath chest pain or other worrisome symptoms. All discharge instructions reviewed with patient and/or family. Voiced understanding. Scripts Lorazepam (Ativan) 0.5 Mg Tablet 0.5 MG PO DAILY PRN for ANXIETY for 7 Days, #7 TAB 0 Refills Prov: NESTOR REVELES 02/05/19 Copy Copies To 1: SELF,NESTOR MEDRANO MD February 05, 2019 00:20
[2019-02-05] MEDS ORDERED: LORA-404 PO (00:25)
[2019-02-05 00:50] VITALS: BP 127/65
== END 2019-02-05 00:50 | disposition home or self-care (01) ==
LOC: EDUNIT# 23:01 → ER FS 23:02
DX: F41.0 Panic disorder [episodic paroxysmal anxiety] (principal); Z86.711 Personal history of pulmonary embolism; Z79.01 Long term (current) use of anticoagulants; Z79.82 Long term (current) use of aspirin; Z90.49 Acquired absence of other specified parts of digestive tract; Z87.19 Personal history of other diseases of the digestive system; Z85.828 Personal history of other malignant neoplasm of skin; Z82.49 Family history of ischemic heart disease and other diseases of the circulatory system
CPT/HCPCS: 93005

== ENCOUNTER 2019-02-23 06:28 | Emergency (ER) | payer MEDICARE ==
[~2019-02-23] VITALS: Ht 182.9 cm; Wt 90.7 kg
[~2019-02-23 06:28] MED LIST changes: +LORA-404 PO
--- OUTSIDE RECORDS SUMMARY | 2019-02-23 06:35 | XMS REPORT | Continuity of Care Document ---
Author Organization Unknown Address Unknown Allergies Active Description Code Type Severity Reaction Onset Reported/Identified Relationship to Patient Clinical Status Yes No Known Drug Allergies [id number] Drug Allergy Unknown N/A 02/18/2019 Medications There is no data. Problems Date Dx Coded Attending Type Code Diagnosis Diagnosed By 12/01/2018 DAYANARA HERNANDEZ DO Ot M25.561 PAIN IN RIGHT KNEE 12/01/2018 DAYANARA HERNANDEZ DO Ot S09.90XA UNSPECIFIED INJURY OF HEAD, INITIAL ENCO 12/01/2018 [facility], DAYANARA Ot S72.451A DISPL SUPRCNDL FX W/O INTRCNDL EXTN LOWE 12/01/2018 [facility], DAYANARA Ot W55.89XA OTHER CONTACT WITH OTHER MAMMALS, INITIA 12/03/2018 [facility], DAYANARA Ot M25.561 PAIN IN RIGHT KNEE 12/03/2018 [facility], DAYANARA Ot S09.90XA UNSPECIFIED INJURY OF HEAD, INITIAL ENCO 12/03[facility] S72.451A DISPL SUPRCNDL FX W/O INTRCNDL EXTN LOWE 12/03/2018 [facility], DAYANARA Ot W55.89XA OTHER CONTACT WITH OTHER MAMMALS, INITIA 02/01/2019 OH GUARDADO DO Ot I26.99 OTHER PULMONARY EMBOLISM WITHOUT ACUTE C 02/01/2019 OH GUARDADO DO Ot K57.30 DVRTCLOS OF LG INT W/O PERFORATION OR AB 02/01/2019 OH GUARDADO DO Ot K64.9 UNSPECIFIED HEMORRHOIDS 02/01/2019 OH GUARDADO DO Ot K92.1 MELENA 02/01/2019 OH GUARDADO DO Ot N40.1 BENIGN PROSTATIC HYPERPLASIA WITH LOWER 02/01/2019 OH GUARDADO DO Ot R09.02 HYPOXEMIA 02/01/2019 OH GUARDADO DO Ot R35.0 FREQUENCY OF MICTURITION 02/01/2019 OH GUARDADO DO Ot Z66 DO NOT RESUSCITATE 02/01/2019 OH GUARDADO DO Ot Z79.01 SERVICE CLERK (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) USE OF ANTICOAGULANT 02/01/2019 [place] [place] Barbara Ot Z79.82 DETENTION (CURRENT) USE OF ASPIRIN 02/01/2019 [facility] [place] Barbara Ot Z79.899 OTHER SERVICE CLERK (CURRENT) DRUG THERAPY 02/01/2019 [facility] [place] Barbara Ot 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 02/01/2019 [facility] [place] Barbara Ot Z87.891 PERSONAL HISTORY OF NICOTINE DEPENDENCE 02/01/2019 [facility] [place] Barbara Ot Z98.890 OTHER SPECIFIED POSTPROCEDURAL STATES 02/20/2019 YUMIKO SMITH DO Ot E78.5 HYPERLIPIDEMIA, UNSPECIFIED 02/20/2019 YUMIKO SMITH DO Ot F41.9 ANXIETY DISORDER, UNSPECIFIED 02/20/2019 YUMIKO SMITH DO Ot K57.30 DVRTCLOS OF LG INT W/O PERFORATION OR AB 02/20/2019 YUMIKO SMITH DO Ot K62.5 HEMORRHAGE OF ANUS AND RECTUM 02/20/2019 YUMIKO SMITH DO Ot K64.8 OTHER HEMORRHOIDS 02/20/2019 YUMIKO SMITH DO Ot M19.91 PRIMARY OSTEOARTHRITIS, UNSPECIFIED SITE 02/20/2019 YUMIKO SMITH DO Ot R79.1 ABNORMAL COAGULATION PROFILE 02/20/2019 YUMIKO SMITH DO Ot Z79.01 DETENTION (CURRENT) USE OF ANTICOAGULANT 02/20/2019 YUMIKO SMITH DO Ot Z79.899 OTHER DETENTION (CURRENT) DRUG THERAPY 02/20/2019 YUMIKO SMITH DO Ot Z86.711 PERSONAL HISTORY OF PULMONARY EMBOLISM 02/20/2019 YUMIKO SMITH DO Ot Z96.659 PRESENCE OF UNSPECIFIED ARTIFICIAL KNEE Procedures There is no data. Results Test [...] - 02/01/19 06:32 Magnesium 2.1 mg/dL 1.8-2.4 CBC - 02/08/19 14:02 WHITE BLOOD CELL COUNT 4.9 Thousand/uL 3.8-10.8 RED BLOOD CELL COUNT 4.67 Million/uL 4.20-5.80 HEMOGLOBIN 13.4 g/dL 13.2-17.1 HEMATOCRIT 41.2 % 38.5-50.0 MCV 88.2 fL 80.0-100.0 MCH 28.7 pg 27.0-33.0 MCHC 32.5 g/dL 32.0-36.0 RDW 12.9 % 11.0-15.0 PLATELET COUNT 219 Thousand/uL 140-400 MPV 10.7 fL 7.5-12.5 ABSOLUTE NEUTROPHILS 2793 cells/uL 5635-1686 ABSOLUTE LYMPHOCYTES 1348 cells/uL 850-3900 ABSOLUTE MONOCYTES 515 cells/uL 200-950 ABSOLUTE EOSINOPHILS 176 cells/uL 15-500 ABSOLUTE BASOPHILS 69 cells/uL 0-200 NEUTROPHILS 57 % NRG LYMPHOCYTES 27.5 % NRG MONOCYTES 10.5 % NRG EOSINOPHILS 3.6 % NRG BASOPHILS 1.4 % NRG Encounters ACCT No. Visit Date/Time Discharge Status Pt. Type Provider Facility Loc./Unit Complaint [id number] 02/08/2019 13:30:00 02/08/2019 23:59:59 CLS Outpatient SELF[facility] [id number] 02/08/2019 13:30:00 Document Registration [id number] 02/18/2019 08:40:00 02/18/2019 11:45:00 DIS Outpatient YUMIKO SMITH DO [facility] ENDO RECTAL BLEEDING [id number] 02/04/2019 23:02:00 02/05/2019 00:50:00 DIS Emergency NESTOR REVELES MD [facility] ER FS ANXIETY ATTACK [id number] 01/30/2019 23:09:00 02/01/2019 10:00:00 DIS Outpatient OH GUARDADO DO [facility] 4TH BILATERAL PE;HYPOXIA [id number] 11/30/2018 14:33:00 12/01/2018 18:33:00 DIS Emergency DAYANARA HERNANDEZ DO [facility] ER FS RT KNEE INJ
[2019-02-23] MEDS ORDERED: ACETAMINOPHEN 500 MG TAB (TYLENOL) PO ONE (07:00)
--- NOTE | 2019-02-23 07:16 | ED Fall/Injury ---
General Chief Complaint: Trauma-Non Activation Stated Complaint: FALL Nursing Triage Note: PT FELL OUT OF BED THIS MORNING AND LANDED ON LEFT SIDE OF BODY. PT COMPLAINING OF LEFT WRIST, SHOULDER, AND NECK PAIN. PT HAS BRUISING/SWELLING AROUND LEFT EYE Source: patient, spouse History of Present Illness Date Seen by Provider: Feb 23, 2019 Time Seen by Provider: 06:36 Initial Comments 79-year-old male presenting with complaints of head and neck pain, left shoulder and wrist pain after falling out of bed at 5:30 AM. He is currently taking Eliquis for a pulmonary embolism. He has no nausea or vomiting. He has not had any change in his vision since the injury. He does have abrasions to the left side of his face as well as bruising and swelling around his left eye. He states that around 5:30 AM he rolled out of bed by accident and hit his head against his walker. This caused bruising and abrasions to the left side of his head and face. He did not lose consciousness. He was able to get back up with the help with his . He also has a superficial abrasion to his right knee where he had surgery. He denies any increase in pain to his right knee since the injury. He relates that he has some chronic neck and back pain anyway but his pain to the left side of his neck and shoulder has been increased since the fall. He hasn't tried waiting at home for a while after the accident to see if it would get better but the pain continued and was not resolving so he came into the [facility] department to be evaluated. He has not tried taking anything at home for pain stating that he usually has a high pain tolerance. His shoulder and wrist pain increases with movement and use of his left arm. He denies any numbness or tingling into his arms or legs. He has no dizziness or lightheadedness. Allergies and Home Medications Allergies Coded Allergies: No Known Drug Allergies (Verified , 02/18/19) Home Medications Alprazolam 0.25 Mg Tablet, 0.25 MG PO BID, (Reported) Apixaban 5 Mg Tablet, 10 MG PO BID Take 2 pills BID for 5 days then 1 pill BID for 3 months Prescribed by: ABIMAEL ANTHONY on 02/01/19 0959 Fluoxetine HCl 20 Mg Capsule, 20 MG PO HS, (Reported) Gluc Garcia Dipo Ch/Scooter Garcia/C/Artis 1 Each Tablet, 1 TAB PO BID, (Reported) Latanoprost 2.5 Ml Drops, 1 DROP OS HS, (Reported) Lorazepam 0.5 Mg Tablet, 0.5 MG PO DAILY PRN for ANXIETY Prescribed by: NESTOR REVELES on 02/05/19 0025 Lovastatin 20 Mg Tablet, 20 MG PO HS, (Reported) Magnesium Oxide 250 Mg Tablet, 250 MG PO DAILY, (Reported) Mirabegron 50 Mg Tab.er.24h, 50 MG PO DAILY, (Reported) Mv,Minerals/FA/Lycopene/Ginkgo 1 Each Tablet, 1 TAB PO DAILY, (Reported) Patient Home Medication List Home Medication List Reviewed: Yes Review of Systems Review of Systems Constitutional: No chills, No dizziness, No fever, No weakness Eyes: Denies Blindness, Denies Blurred Vision, Denies Photophobia; Other (bruising and swelling around left eye) Ears, Nose, Mouth, Throat: denies ear discharge, denies nose discharge, denies epistaxis Respiratory: No cough, No short of breath Cardiovascular: No chest pain Gastrointestinal: No abdominal pain, No nausea, No vomiting Genitourinary: no symptoms reported Musculoskeletal: see HPI Skin: see HPI Psychiatric/Neurological: Denies Numbness, Denies Tingling, Denies Weakness Past Azekvtj-Jvteao-Eppwet Hx Past Med/Social Hx: Reviewed Nursing Past Med/Soc Hx Patient Social History Alcohol Use: Denies Use Recreational Drug Use: No 2nd Hand Smoke Exposure: No Recent Foreign Travel: No Contact w/Someone Who Travel: No Recent Infectious Disease Expo: No Recent Hopitalizations: No Seasonal Allergies Seasonal Allergies: No Past Medical History Surgeries: Yes Appendectomy, Eye Surgery, Orthopedic Respiratory: No Pulmonary Embolism Cardiac: No Neurological: No Genitourinary: No Gastrointestinal: Yes Diverticulosis, Hemorrhoids Musculoskeletal: Yes Arthritis Endocrine: Yes HEENT: Yes Cataract Cancer: Yes Skin Psychosocial: No Integumentary: No Blood Disorders: No Family Medical History Completed stroke 19 FATHER Diabetes mellitus 19 MOTHER G8 SISTER Heart Disease, Diabetes, Other Conditions/Hx Physical Exam Vital Signs Vital Signs - First Documented 02/23/19 06:44 Temp 96.8 Pulse 79 Resp 20 B/P (MAP) 139/77 (97) Pulse Ox 95 O2 Delivery Room Air Capillary Refill : Less Than 3 Seconds Height, Weight, BMI Height: 6'0" Weight: 200lbs. 4.8oz. 90.223241cn; 26.5 BMI Method:Stated General Appearance: WD/WN, no apparent distress HEENT: PERRL/EOMI, TMs normal (no hemotympanum or drainage from either ear), pharynx normal; No photophobia Neck: full range of motion, tender lateral (left side with paraspinal muscle spasm) Cardiovascular: normal peripheral pulses, regular rate, rhythm Respiratory: chest non-tender, lungs clear, normal breath sounds, no respiratory distress, no accessory muscle use Gastrointestinal: normal bowel sounds, non tender, soft Extremities: normal capillary refill, other (pain to left AC joint of shoulder and with ROM, mild pain in left wrist with ROM but no focal tenderness with palpation. no numbness. NVT intact. ROM intact for shoulder and wrist. 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 bruising to left eyelids and periorbital area, superficial abrasion to medial knee.) Crawley Coma Score Best Eye Response: (4) Open Spontaneously Best Verbal Response: (5) Oriented Best Motor Response: (6) Obeys Commands Carlos Total: 15 Progress/Results/Core Measures Results/Orders My Orders Orders - MARCOS GARCÍA MD Ct Head/Face/Cervical Wo (02/23/19 06:50) Shoulder 2 View Left (02/23/19 06:50) Wrist 3 View Left (02/23/19 06:50) Ice: Apply To Affected Area (02/23/19 06:50) Head Of Bed (02/23/19 06:50) Acetaminophen Tablet (Tylenol Tablet) (02/23/19 07:00) Medications Given in ED Current Medications Medications Dose Ordered Sig/Brennen Route Start Time Stop Time Status Last Admin Dose Admin Acetaminophen 1,000 mg ONCE ONCE PO 02/23/19 07:00 02/23/19 07:02 DC 02/23/19 06:57 1,000 MG Vital Signs/I&O 02/23/19 02/23/19 06:44 08:25 Temp 96.8 Pulse 79 83 Resp 20 18 B/P (MAP) 139/77 (97) 122/80 (94) Pulse Ox 95 96 O2 Delivery Room Air Blood Pressure Mean: 97 Progress Progress Note #1: Progress Note Acetaminophen for pain. Ice for pain, bruising and swelling. Elevate head of bed for bruising and swelling. Check CT head, face and cervical spine for fracture, intracranial hemorrhage. Check xrays of left shoulder/wrist for fracture or dislocation. Progress Note #2: Time: 07:[address] scan and xrays back and do not show any acute intracranial hemorrhage. He does have a left minimally displace nasal fracture but no cervical spine fracture and no fracture of shoulder or wrist. Will treat symptomatically and encourage ice, rest and elevation. Counseled to use acetaminophen and keep head of bed elevated to limit swelling and bruising. Check back with pcp for continued concerns. Diagnostic Imaging Diagonstic Imaging: CT Plain Films/CT/US/NM/MRI: facial bones, c-spine, head Comments NAME: RUDY JORGENSEN [facility] REC#: [id number] PT STATUS: REG ER : 1940 PHYSICIAN: MARCOS GARCÍA MD ADMIT DATE: 02/23/19/ER FS Draft Date of Exam:02/23/19 CT HEAD/FACE/CERVICAL WO PROCEDURE: CT head, face, and cervical spine without contrast. TECHNIQUE: Multiple contiguous axial images were obtained through the head, neck, and facial bones without the use of intravenous contrast. Sagittal and coronal reformations through the cervical spine and facial bones were also performed. Auto Exposure Controls were utilized during the CT exam to meet ALARA standards for radiation dose reduction. INDICATION: Fall from bed with left shoulder and neck pain. Bruising and swelling of the left eye. COMPARISON: 11/30/2018 FINDINGS: CT head: The ventricles and cortical sulci are prominent, likely due to chronic microvascular disease. There is no significant midline shift or mass effect. No acute intracranial hemorrhage is seen. There are areas of hypoattenuation in the white matter which are commonly seen with chronic microvascular disease. The calvarium appears intact. CT face: The pterygoid plates are intact. The zygomatic arches are intact. The mandible demonstrates no acute abnormality and is normal in alignment. There is a minimally depressed fracture of the left nasal bone. The maxillary sinuses appear intact. The orbits appear intact. There is mucosal thickening and fluid in the right maxillary sinus with thickening of the surrounding bone, likely from chronic sinusitis. There is mild leftward deviation of the nasal septum. There is moderate left periorbital soft tissue edema. No post septal edema is seen. CT cervical spine: Alignment of the cervical spine demonstrates minimal grade 1 anterolisthesis at C6-7. Vertebral body heights are preserved. No acute fracture is seen. There are moderate degenerative changes in the cervical spine, with multilevel facet arthropathy. No bony fragments or hyperdense fluid collections are seen in the spinal canal. The prevertebral soft tissues appear normal. IMPRESSION: 1. Minimally depressed fracture of the left nasal bone with moderate left periorbital soft tissue edema. No other facial fractures are seen. 2. No acute intracranial hemorrhage or calvarium fracture. 3. Moderate degenerative changes in the cervical spine with no acute fracture seen. 4. Findings suggestive of chronic right maxillary sinusitis. Dictated on workstation # [id number] Dict: 02/23/1937 Trans: 02/23/1949 [facility] [id number] Interpreted by: QUINTIN AMBROSIO MD Electronically signed by: Reviewed: Reviewed by Me (and radiologist report) Diagonstic Imaging: Xray Plain Films/CT/US/NM/MRI: other (shoulder and wrist, left side) Comments NAME: RUDY JORGENSEN [facility] REC#: [id number] PT STATUS: REG ER : 1940 PHYSICIAN: MARCOS GARCÍA MD ADMIT DATE: 02/23/19/ER FS Draft Date of Exam:02/23/19 WRIST 3 VIEW LEFT INDICATION: Fall out of bed, left-sided pain FINDINGS: There is no fracture, dislocation, or acute articular incongruity. Vascular calcifications and osteoarthritis noted. IMPRESSION: No acute appearing abnormality. Dictated on workstation # [id number] Dict: 02/23/1935 Trans: 02/23/19 0739 [facility] [id number] Interpreted by: MARSHAL CARD Electronically signed by: NAME: RUDY JORGENSEN [facility] REC#: [id number] PT STATUS: REG ER : 1940 PHYSICIAN: MARCOS GARCÍA MD ADMIT DATE: 02/23/19/ER FS Draft Date of Exam:02/23/19 SHOULDER 2 VIEW LEFT PATIENT HISTORY: Fall with left shoulder injury. TECHNIQUE: 2 views of the left shoulder COMPARISON: None FINDINGS: No acute fracture is seen in the left shoulder. Alignment appears normal. There are moderate degenerative changes in the left acromioclavicular joint. There is moderate loss of the acromiohumeral space with remodeling at the undersurface of the acromion, may be due to chronic rotator cuff injury. IMPRESSION: 1. Degenerative changes in the left shoulder with no acute osseous abnormalities seen. 2. Findings suggestive of chronic left rotator cuff injury. Dictated on workstation # [id number] Dict: 02/23/1935 Trans: 02/23/19 0738 [facility] [id number] Interpreted by: QUINTIN AMBROSIO MD Electronically signed by: Reviewed: Reviewed by Me (and radiologist report) Departure Impression Primary Impression: Closed fracture nasal bone Qualified Codes: S02.2XXA - Fracture of nasal bones, initial encounter for closed fracture Additional Impressions: Facial contusion Qualified Codes: S00.83XA - Contusion of other part of head, initial encounter Traumatic hematoma of face Qualified Codes: S00.83XA - Contusion of other part of head, initial encounter Abrasions of multiple sites Contusion of left shoulder, initial encounter Contusion of left wrist, initial encounter Fall from bed, initial encounter Disposition: 01 HOME, SELF-CARE Condition: Stable Departure-Patient Inst. Decision time for Depature: 07:59 Referrals: CHRIS GREY MD (PCP/Family) Primary Care Physician Patient Instructions: Contusion (DC), Going Home on Blood Thinners , HEMATOMA, Nose Fracture (DC) Add. Discharge Instructions: Keep your head elevated at least 30 to 45 degrees to help limit the swelling and bruising. Use Acetaminophen 650 to 1000 mg every 6 hours to help with pain. You may apply ice 15-20 minutes every few hours to help with pain, swelling and bruising. Check back with clinic for continued concerns. There is a small fracture to the left side of your nose but it will heal on its own without needing any other treatment. All discharge instructions reviewed with patient and/or family. Voiced understanding. MARCOS GARCÍA MD 15, 2019 07:16
--- NOTE | 2019-02-23 07:39 | Diagnostic Imaging Report ---
PATIENT HISTORY: Fall with left shoulder injury. TECHNIQUE: 2 views of the left shoulder COMPARISON: None FINDINGS: No acute fracture is seen in the left shoulder. Alignment appears normal. There are moderate degenerative changes in the left acromioclavicular joint. There is moderate loss of the acromiohumeral space with remodeling at the undersurface of the acromion, may be due to chronic rotator cuff injury. IMPRESSION: 1. Degenerative changes in the left shoulder with no acute osseous abnormalities seen. 2. Findings suggestive of chronic left rotator cuff injury. Dictated by: Dictated on workstation # [id number]
--- NOTE | 2019-02-23 07:39 | Diagnostic Imaging Report ---
INDICATION: Fall out of bed, left-sided pain FINDINGS: There is no fracture, dislocation, or acute articular incongruity. Vascular calcifications and osteoarthritis noted. IMPRESSION: No acute appearing abnormality. Dictated by: Dictated on workstation # [id number]
--- NOTE | 2019-02-23 07:49 | Diagnostic Imaging Report ---
PROCEDURE: CT head, face, and cervical spine without contrast. TECHNIQUE: Multiple contiguous axial images were obtained through the head, neck, and facial bones without the use of intravenous contrast. Sagittal and coronal reformations through the cervical spine and facial bones were also performed. Auto Exposure Controls were utilized during the CT exam to meet ALARA standards for radiation dose reduction. INDICATION: Fall from bed with left shoulder and neck pain. Bruising and swelling of the left eye. COMPARISON: 11/30/2018 FINDINGS: CT head: The ventricles and cortical sulci are prominent, likely due to chronic microvascular disease. There is no significant midline shift or mass effect. No acute intracranial hemorrhage is seen. There are areas of hypoattenuation in the white matter which are commonly seen with chronic microvascular disease. The calvarium appears intact. CT face: The pterygoid plates are intact. The zygomatic arches are intact. The mandible demonstrates no acute abnormality and is normal in alignment. There is a minimally depressed fracture of the left nasal bone. The maxillary sinuses appear intact. The orbits appear intact. There is mucosal thickening and fluid in the right maxillary sinus with thickening of the surrounding bone, likely from chronic sinusitis. There is mild leftward deviation of the nasal septum. There is moderate left periorbital soft tissue edema. No post septal edema is seen. CT cervical spine: Alignment of the cervical spine demonstrates minimal grade 1 anterolisthesis at C6-7. Vertebral body heights are preserved. No acute fracture is seen. There are moderate degenerative changes in the cervical spine, with multilevel facet arthropathy. No bony fragments or hyperdense fluid collections are seen in the spinal canal. The prevertebral soft tissues appear normal. IMPRESSION: 1. Minimally depressed fracture of the left nasal bone with moderate left periorbital soft tissue edema. No other facial fractures are seen. 2. No acute intracranial hemorrhage or calvarium fracture. 3. Moderate degenerative changes in the cervical spine with no acute fracture seen. 4. Findings suggestive of chronic right maxillary sinusitis. Dictated by: Dictated on workstation # [id number]
[2019-02-23 08:25] VITALS: BP 122/80
== END 2019-02-23 08:27 | disposition home or self-care (01) ==
LOC: EDUNIT# 06:28 → ER FS 06:31
DX: S02.2XXA Fracture of nasal bones, initial encounter for closed fracture (principal); S00.83XA Contusion of other part of head, initial encounter; S40.012A Contusion of left shoulder, initial encounter; S60.212A Contusion of left wrist, initial encounter; R40.2142 Coma scale, eyes open, spontaneous, at arrival to emergency department; R40.2252 Coma scale, best verbal response, oriented, at arrival to emergency department; R40.2362 Coma scale, best motor response, obeys commands, at arrival to emergency department; Z86.711 Personal history of pulmonary embolism; Z79.01 Long term (current) use of anticoagulants; Z90.49 Acquired absence of other specified parts of digestive tract; Z98.890 Other specified postprocedural states; Z87.19 Personal history of other diseases of the digestive system; Z85.828 Personal history of other malignant neoplasm of skin; Z82.49 Family history of ischemic heart disease and other diseases of the circulatory system; W06.XXXA Fall from bed, initial encounter
CPT/HCPCS: 70450; 70486; 72125; 73030; 73110

== ENCOUNTER 2019-09-03 10:29 | Emergency (ER) | payer MEDICARE ==
[~2019-09-03] VITALS: Ht 182 cm; Wt 84.0 kg
[2019-09-03] MEDS ORDERED: NS IV 1000 ML 1,000 ML IV SCH (10:45)
--- NOTE | 2019-09-03 10:50 | ED General ---
General Stated Complaint: FEVER/HEADACHE Source of Information: Patient Exam Limitations: No Limitations History of Present Illness Date Seen by Provider: Sep 03, 2019 Time Seen by Provider: 10:47 Initial Comments To ER per private vehicle with reports of fever onset last night with shaking and Rigors. Had a transrectal prostate biopsy in Dr. Ferraro's office yesterday. Reports some mild pain in the low pelvis. Denies a sore throat runny nose cough or abdominal pain. Does report a severe headache overnight Timing/Duration: 1-2 Days Severity: Moderate Associated Systoms: No Chest Pain, No Cough, No Diaphoresis; Fever/Chills, Headaches; No Nausea/Vomiting Allergies and Home Medications Allergies Coded Allergies: No Known Drug Allergies (Verified , 02/18/19) Home Medications Alprazolam 0.25 Mg Tablet, 0.25 MG PO BID, (Reported) Apixaban 5 Mg Tablet, 10 MG PO BID Take 2 pills BID for 5 days then 1 pill BID for 3 months Prescribed by: ABIMAEL ANTHONY on 02/01/19 0959 Fluoxetine HCl 20 Mg Capsule, 20 MG PO HS, (Reported) Gluc Garcia Dipo Ch/Scooter Garcia/C/Artis 1 Each Tablet, 1 TAB PO BID, (Reported) Latanoprost 2.5 Ml Drops, 1 DROP OS HS, (Reported) Levofloxacin 500 Mg Tablet, 500 MG PO DAILY Prescribed by: SANGITA RODRIGUEZ on 09/03/19 1144 Lorazepam 0.5 Mg Tablet, 0.5 MG PO DAILY PRN for ANXIETY Prescribed by: NESTOR REVELES on 02/05/19 0025 Lovastatin 20 Mg Tablet, 20 MG PO HS, (Reported) Magnesium Oxide 250 Mg Tablet, 250 MG PO DAILY, (Reported) Mirabegron 50 Mg Tab.er.24h, 50 MG PO DAILY, (Reported) Mv,Minerals/FA/Lycopene/Ginkgo 1 Each Tablet, 1 TAB PO DAILY, (Reported) Patient Home Medication List Home Medication List Reviewed: Yes Review of Systems Review of Systems Constitutional: see HPI, chills, fever EENTM: see HPI Respiratory: no symptoms reported Cardiovascular: no symptoms reported Genitourinary: see HPI, dysuria (chronic dribbling unchanged in nature) Musculoskeletal: no symptoms reported Skin: no symptoms reported Psychiatric/Neurological: See HPI, Headache Hematologic/Lymphatic: No Symptoms Reported Immunological/Allergic: no symptoms reported Past Ehfotav-Cyqyhb-Czujry Hx Patient Social History 2nd Hand Smoke Exposure: No Recent Hopitalizations: No Seasonal Allergies Seasonal Allergies: No Past Medical History Surgeries: Yes Appendectomy, Eye Surgery, Orthopedic Respiratory: No Pulmonary Embolism Cardiac: No Neurological: No Genitourinary: No Gastrointestinal: Yes Diverticulosis, Hemorrhoids Musculoskeletal: Yes Arthritis Endocrine: Yes HEENT: Yes Cataract Cancer: Yes Skin Psychosocial: No Integumentary: No Blood Disorders: No Family Medical History Completed stroke 19 FATHER Diabetes mellitus 19 MOTHER G8 SISTER Heart Disease, Diabetes, Other Conditions/Hx Physical Exam Vital Signs Vital Signs - First Documented 09/03/19 10:50 Temp 37.0 Pulse 86 Resp 18 B/P (MAP) 105/76 (86) Pulse Ox 95 Capillary Refill : Height, Weight, BMI Height: 6'0" Weight: 200lbs. 4.8oz. [id number]; 26.5 BMI Method:Stated General Appearance: No Apparent Distress, WD/WN, Other (alert, oriented, jovial, joking with this very pleasant) Eyes: Bilateral Eye Normal Inspection, Bilateral Eye PERRL, Bilateral Eye EOMI HEENT: PERRL/EOMI, TMs Normal Neck: Full Range of Motion, Normal Inspection Respiratory: Normal Breath Sounds, No Accessory Muscle Use, No Respiratory Distress Cardiovascular: Regular Rate, Rhythm, Normal Peripheral Pulses Gastrointestinal: Normal Bowel Sounds, Non Tender, Soft; No Abnormal Bowel Sounds, No Tenderness Extremity: Normal Capillary Refill, Normal Inspection Neurologic/Psychiatric: Alert, Oriented x3 Skin: Normal Color, Warm/Dry Focused Exam Lactate Level 09/03/19 10:45: Lactic Acid Level 1.81 Lactic Acid Level Laboratory Tests Test 09/03/19 10:45 Lactic Acid Level 1.81 MMOL/L (0.50-2.00) Progress/Results/Core Measures Suspected Sepsis SIRS Temperature: Pulse: Respiratory Rate: Laboratory Tests 09/03/19 10:45: White Blood Count 7.6 Blood Pressure / Mean: 09/03/19 10:45: Lactic Acid Level 1.81 Laboratory Tests 09/03/19 10:45: Creatinine 0.95, Platelet Count 177, Total Bilirubin 1.1H Results/Orders Lab Results Laboratory Tests Test 09/03/19 10:45 09/03/19 10:53 Range/Units White Blood Count 7.6 4.3-11.0 10^3/uL Red Blood Count 4.61 4.35-5.85 10^6/uL Hemoglobin 13.4 13.3-17.7 G/DL Hematocrit 41 40-54 % Mean Corpuscular Volume 88 80-99 FL Mean Corpuscular Hemoglobin 29 25-34 PG Mean Corpuscular Hemoglobin Concent 33 32-36 G/DL Red Cell Distribution Width 12.6 10.0-14.5 % Platelet Count 177 130-400 10^3/uL Mean Platelet Volume 10.2 7.4-10.4 FL Neutrophils (%) (Auto) 88 H 42-75 % Lymphocytes (%) (Auto) 7 L 12-44 % Monocytes (%) (Auto) 5 0-12 % Eosinophils (%) (Auto) 0 0-10 % Basophils (%) (Auto) 0 0-10 % Neutrophils # (Auto) 6.7 1.8-7.8 X 10^3 Lymphocytes # (Auto) 0.5 L 1.0-4.0 X 10^3 Monocytes # (Auto) 0.4 0.0-1.0 X 10^3 Eosinophils # (Auto) 0.0 0.0-0.3 10^3/uL Basophils # (Auto) 0.0 0.0-0.1 10^3/uL Sodium Level 139 135-145 MMOL/L Potassium Level 3.9 3.6-5.0 MMOL/L Chloride Level 108 H 98-107 MMOL/L Carbon Dioxide Level 22 21-32 MMOL/L Anion Gap 9 5-14 MMOL/L Blood Urea Nitrogen 21 H 7-18 MG/DL Creatinine 0.95 0.60-1.30 MG/DL Estimat Glomerular Filtration Rate > 60 BUN/Creatinine Ratio 22 Glucose Level 145 H 70-105 MG/DL Lactic Acid Level 1.81 0.50-2.00 MMOL/L Calcium Level 9.3 8.5-10.1 MG/DL Corrected Calcium 9.4 8.5-10.1 MG/DL Total Bilirubin 1.1 H 0.1-1.0 MG/DL Aspartate Amino Transf (AST/SGOT) 21 5-34 U/L Alanine Aminotransferase (ALT/SGPT) 18 0-55 U/L Alkaline Phosphatase 104 40-136 U/L Total Protein 6.5 6.4-8.2 GM/DL Albumin 3.9 3.2-4.5 GM/DL Urine Color YELLOW Urine Clarity CLOUDY Urine pH 6.0 5-9 Urine Specific Vader 1.020 1.016-1.022 Urine Protein NEGATIVE NEGATIVE Urine Glucose (UA) NEGATIVE NEGATIVE Urine Ketones NEGATIVE NEGATIVE Urine Nitrite NEGATIVE NEGATIVE Urine Bilirubin NEGATIVE NEGATIVE Urine Urobilinogen 0.2 < = 1.0 MG/DL Urine Leukocyte Esterase NEGATIVE NEGATIVE Urine RBC (Auto) 3+ H NEGATIVE Urine RBC 50-100 H /HPF Urine WBC NONE /HPF Urine Squamous Epithelial Cells 2-5 /HPF Urine Crystals NONE /LPF Urine Bacteria TRACE /HPF Urine Casts NONE /LPF Urine Mucus NEGATIVE /LPF Urine Culture Indicated NO Micro Results Microbiology 09/03/19 Influenza Types A,B Antigen (JOSE ANTONIO) - Final, Complete My Orders Orders - SANGITA RODRIGUEZ APRN Cbc With Automated Diff (09/03/19 10:44) Comprehensive Metabolic Panel (09/03/19 10:44) Ua Culture If Indicated (09/03/19 10:44) Blood Culture (09/03/19 10:44) Ct Head Wo (09/03/19 10:44) Lactic Acid Analyzer (09/03/19 10:44) Influenza A And B Antigens (09/03/19 10:44) Chest Pa/Lat (2 View) (09/03/19 10:44) Ns Iv 1000 Ml (Sodium Chloride 0.9%) (09/03/19 10:45) Ed Iv/Invasive Line Start (09/03/19 10:44) Manual Differential (09/03/19 10:45) Levofloxacin Tablet (Levaquin Tablet) (09/03/19 11:45) Vital Signs/I&O 09/03/19 10:50 Temp 37.0 Pulse 86 Resp 18 B/P (MAP) 105/76 (86) Pulse Ox 95 Capillary Refill : Diagnostic Imaging Diagonstic Imaging: CT Comments NAME: RUDY JORGENSEN [facility] REC#: [id number] PT STATUS: REG ER : 1940 PHYSICIAN: SANGITA RODRIGUEZ APRN ADMIT DATE: 09/03/19/ER Draft Date of Exam:09/03/19 CHEST PA/LAT (2 VIEW) INDICATION: Fever and headache. Time of exam 11:17 AM Comparison is made with prior chest from 01/30/2019. Heart size is stable. Right hemidiaphragm is elevated. No infiltrates are identified. No effusion or pneumothorax is detected. IMPRESSION: No acute cardiopulmonary processes detected. Dictated on workstation # [id number] Dict: 09/03/19 1119 Trans: 09/03/19 1124 [facility] [id number] Interpreted by: CRIS ALFARO MD Electronically signed by: Departure Communication (Admissions) Spoke with Dr. Ferraro, agrees to give Rocephin here and Levaquin for one week. He did give Levaquin last night after the procedure and 1 additional one for today. He would like to continue the Levaquin for a total of 1 week. Impression Primary Impression: Prostatitis Qualified Codes: N41.0 - Acute prostatitis Disposition: 01 HOME, SELF-CARE Condition: Improved Departure-Patient Inst. Decision time for Depature: 11:32 Referrals: SELFCHRIS MD (PCP/Family) Primary Care Physician Patient Instructions: Prostatitis Add. Discharge Instructions: 1. Continue to use Tylenol and ibuprofen for fever control or pain control 2. Antibiotics as directed starting tomorrow but you should pick them up today b ecause the pharmacies are not likely open tomorrow. Return to ER for any worsening symptoms or other concerns. Scripts Levofloxacin (Levaquin) 500 Mg Tablet 500 MG PO DAILY, #10 TAB Prov: SANGITA RODRIGUEZ APRN 09/03/19 SANGITA RODRIGUEZ APRN Sep 03, 2019 10:50
[2019-09-03 10:53] LABS: BASOPHILS % (AUTO) 0 % (0-10); EOSINOPHILS % (AUTO) 0 % (0-10); HEMATOCRIT 41 % (40-54); HEMOGLOBIN 13.4 G/DL (13.3-17.7); LYMPHOCYTES # (AUTO) 0.5 X 10^3 (1.0-4.0); LYMPHOCYTES % (AUTO) 7 % (12-44); MEAN CORPUSCULAR HEMOGLOBIN 29 PG (25-34); MEAN CORPUSCULAR HGB CONC 33 G/DL (32-36); MEAN CORPUSCULAR VOLUME 88 FL (80-99); MEAN PLATELET VOLUME 10.2 FL (7.4-10.4); MONOCYTES # (AUTO) 0.4 X 10^3 (0.0-1.0); MONOCYTES % (AUTO) 5 % (0-12); NEUTROPHILS # (AUTO) 6.7 X 10^3 (1.8-7.8); NEUTROPHILS % (AUTO) 88 % (42-75); PLATELET COUNT 177 10^3/uL (130-400); RED CELL DISTRIBUTION WIDTH 12.6 % (10.0-14.5); WHITE BLOOD COUNT 7.6 10^3/uL (4.3-11.0)
[2019-09-03 11:04] LABS: BILIRUBIN,URINE NEGATIVE (NEGATIVE); CLARITY,URINE CLOUDY; COLOR,URINE YELLOW; GLUCOSE, URINE (UA) NEGATIVE (NEGATIVE); KETONES,URINE NEGATIVE (NEGATIVE); LEUKOCYTE ESTERASE ,URINE NEGATIVE (NEGATIVE); NITRITE,URINE NEGATIVE (NEGATIVE); PROTEIN,URINE NEGATIVE (NEGATIVE)
[2019-09-03 11:14] LABS: BACTERIA,URINE TRACE /HPF; RBC,URINE 50-100 /HPF
[2019-09-03 11:15] LABS: ALANINE AMINOTRANSFERASE 18 U/L (0-55); ALBUMIN 3.9 GM/DL (3.2-4.5); ALKALINE PHOSPHATASE 104 U/L (40-136); BILIRUBIN,TOTAL 1.1 MG/DL (0.1-1.0); BUN/CREATININE RATIO 22; CALCIUM 9.3 MG/DL (8.5-10.1); CARBON DIOXIDE 22 MMOL/L (21-32); CHLORIDE 108 MMOL/L (98-107); CREATININE SERUM 0.95 MG/DL (0.60-1.30); GFR ESTIMATED > 60; GLUCOSE 145 MG/DL (70-105); POTASSIUM 3.9 MMOL/L (3.6-5.0); SODIUM 139 MMOL/L (135-145); TOTAL PROTEIN 6.5 GM/DL (6.4-8.2)
--- NOTE | 2019-09-03 11:24 | Diagnostic Imaging Report ---
INDICATION: Fever and headache. Time of exam 11:17 AM Comparison is made with prior chest from 01/30/2019. Heart size is stable. Right hemidiaphragm is elevated. No infiltrates are identified. No effusion or pneumothorax is detected. IMPRESSION: No acute cardiopulmonary processes detected. Dictated by: Dictated on workstation # [id number]
--- NOTE | 2019-09-03 11:40 | Diagnostic Imaging Report ---
PROCEDURE: CT head without contrast. TECHNIQUE: Multiple contiguous axial images were obtained through the brain without the use of intravenous contrast. Auto Exposure Controls were utilized during the CT exam to meet ALARA standards for radiation dose reduction. INDICATION: Fever and headache. Correlation is made with prior head CT from 02/23/2019. The ventricles and sulci are stable and consistent with the patient's age. Periventricular hypodensity is noted consistent with senescent change. No sulcal effacement or midline shift is detected. No acute intra-axial or extra-axial hemorrhage is identified. Cisterns are patent. Visualized paranasal sinuses are clear apart from minimal mucosal thickening of the right maxillary sinus. IMPRESSION: Stable chronic changes. No acute intracranial process is detected. Dictated by: Dictated on workstation # [id number]
[2019-09-03] MEDS ORDERED: LEVO500T2 PO (11:44)
[2019-09-03] MEDS ORDERED: LEVOFLOXACIN 750 MG TAB (LEVAQUIN) PO ONE (11:45)
[2019-09-03] MEDS ORDERED: cefTRIAXone FOR IV USE 1,000 MG in WATER (STERILE) FOR INJECTION 10 ML IV ONE (12:00)
[2019-09-03 12:17] VITALS: BP 110/66
[2019-09-03 12:20] LABS: BASOPHILS % (MANUAL) 1 %; LYMPHOCYTES % (MANUAL) 4 %; MONOCYTES % (MANUAL) 5 %; NEUTROPHILS % (MANUAL) 90 %; RBC MORPH NORMAL; TOXIC GRANULATION/VACUOLAZATIO 1+
== END 2019-09-03 12:19 | disposition home or self-care (01) ==
LOC: EDUNIT# 10:29 → ER 10:31
DX: N41.0 Acute prostatitis (principal); Z86.711 Personal history of pulmonary embolism; Z90.49 Acquired absence of other specified parts of digestive tract; Z87.19 Personal history of other diseases of the digestive system; Z85.828 Personal history of other malignant neoplasm of skin
CPT/HCPCS: 36415; 70450; 71046; 80053; 81000; 83605; 85007; 85027; 87040; 87804; 96361; 96374

== ENCOUNTER → 2019-09-17 | Outpatient (CLI) | payer MEDICARE ==
[~2019-09-17] MED LIST changes: +LEVO500T2 PO
--- NOTE | 2019-09-17 12:38 | Diagnostic Imaging Report ---
PROCEDURE: CT abdomen and pelvis without contrast. TECHNIQUE: Multiple contiguous axial images were obtained through the abdomen and pelvis without the use of intravenous contrast. Auto Exposure Controls were utilized during the CT exam to meet ALARA standards for radiation dose reduction. INDICATION: Recently diagnosed prostate carcinoma. COMPARISON: Correlation is made with prior CT from 11/30/2018. FINDINGS: Imaging through the lung bases demonstrate a 4 mm micronodule in the posterolateral left lower lobe. Otherwise, lung bases are clear. No discrete liver lesion is detected. The gallbladder is surgically absent. No biliary ductal dilatation is seen. The pancreas and spleen are unremarkable. No adrenal mass is detected. A large cyst arising from the upper pole of the right kidney appears to be stable at 12.4 cm AP. Smaller cyst in the lower pole of the left kidney appears stable. No definite renal calculi or hydronephrosis is detected. The aorta is calcified but nonaneurysmal. No definite central retroperitoneal or mesenteric lymphadenopathy is identified. The small and large bowel loops are normal in caliber. There is no obstruction. There is diverticulosis of predominantly the transverse, descending, and sigmoid colon but no evidence of acute diverticulitis. There is no free fluid or fluid collection identified. The bladder is decompressed. Prostate contains calcifications. No definite pelvic lymphadenopathy is seen. No definite osteoblastic lesions are detected. IMPRESSION: 1. Stable renal cysts. 2. Uncomplicated diverticulosis. 3. No evidence of abdominal or pelvic lymphadenopathy or metastatic disease. Dictated by: Dictated on workstation # [id number]
--- NOTE | 2019-09-17 13:46 | Diagnostic Imaging Report ---
INDICATION: Newly diagnosed prostate carcinoma. Patient was administered 26.1 mCi technetium 99m MDP intravenously and whole-body imaging was performed after a three-hour delay. Normal uptake of activity by the axial and appendicular skeleton is noted. There is uptake by the kidneys with excretion into the urinary bladder. Postop changes right knee arthroplasty are noted. There is some uptake in the distal femur correlating with the healing fracture. Patient did sustain an acute distal right femur fracture in November 2018. There is also some mild uptake in the mid shaft of the right femur which is indeterminate. No other suspicious foci of tracer accumulation is seen. IMPRESSION: There are posttraumatic changes to the distal right femur. There is some mild uptake in the mid shaft of the right femur as well indeterminate and correlation with femur radiographs would be useful for better characterization. No other suspicious foci are detected apart from some mild degenerative changes in the cervical spine. Dictated by: Dictated on workstation # [id number]
== END ==
LOC: CARD 10:00
PROVIDERS: ATTEND Urology
DX: C61 Malignant neoplasm of prostate (principal); N28.1 Cyst of kidney, acquired; K57.30 Diverticulosis of large intestine without perforation or abscess without bleeding; Z90.49 Acquired absence of other specified parts of digestive tract
CPT/HCPCS: 74176; 78306

== ENCOUNTER 2019-10-09 14:31 | Outpatient (RCR) | payer MEDICARE ==
[~2019-10-09 14:31] MED LIST changes: -FLUO20CA25 PO; +FLUO20CA46 PO
== END 2020-01-07 | disposition home or self-care (01) ==
LOC: ONC 14:31
PROVIDERS: ATTEND Radiology Radiation Oncology
DX: C61 Malignant neoplasm of prostate (principal)
CPT/HCPCS: 99204

== ENCOUNTER → 2020-11-13 | Outpatient (CLI) | payer MEDICARE ==
[~2020-11-13] MED LIST changes: +ALPR.25T PO; -ALPR0.254 PO; +ASPI-1238 PO; -ASPI-983 PO; +METH-732 PO; -METH750T3 PO
--- NOTE | 2020-11-13 12:34 | Diagnostic Imaging Report ---
PROCEDURE: CT abdomen and pelvis without contrast. TECHNIQUE: Multiple contiguous axial images were obtained through the abdomen and pelvis without the use of intravenous contrast. Auto Exposure Controls were utilized during the CT exam to meet ALARA standards for radiation dose reduction. INDICATION: Prostate carcinoma. Correlation is made with prior CT from 09/17/2019. The lung bases are clear. No discrete liver mass is detected. Gallbladder surgically absent. There is no biliary duct dilatation. Pancreas and spleen are unremarkable. No adrenal mass is identified. Bilateral renal cysts are noted. Large cyst right kidney measures unchanged at 12.4 cm. A left renal cyst measures 3.2 cm, stable. There are no calculi or hydronephrosis. Aorta is nonaneurysmal. Bowel loops again demonstrate diverticulosis within the sigmoid colon. There is no evidence of diverticulitis. No free fluid or fluid collection is identified. No central retroperitoneal or mesenteric lymphadenopathy is detected. No definite iliac or inguinal lymphadenopathy is detected. Prostate contains multiple calcifications. Bladder is decompressed. No osteoblastic lesions are seen. IMPRESSION: 1. Stable CT abdomen pelvis without contrast when compared to examination from 09/17/2019. No abdominal or pelvic lymphadenopathy or evidence metastatic disease is detected. 2. Stable bilateral renal cysts. 3. Uncomplicated diverticulosis. Dictated by: Dictated on workstation # [id number]
--- NOTE | 2020-11-13 14:44 | Diagnostic Imaging Report ---
Indication: Prostate carcinoma. Patient was administered 26.1 mCi technetium 99m MDP intravenously and whole-body imaging was performed after 3 hour delay. Correlation is made with prior whole body bone scan from 09/17/2019. There is uptake of activity by the axial and appendicular skeleton. This uptake by the kidneys with excretion into the urinary bladder. There are new foci of abnormal uptake involving the lower left anterior ribs. Patient also reportedly sustained anterior chest trauma on 10/23/2020. No additional areas of uptake are identified apart from mild degenerative changes in the cervical spine. IMPRESSION: Probable post traumatic sequelae in the anterior lower left ribs. No definite scintigraphic evidence of osseous metastatic disease is identified. Dictated by: Dictated on workstation # [id number]
== END ==
LOC: CARD 10:52
PROVIDERS: ATTEND Urology
DX: C61 Malignant neoplasm of prostate (principal); N28.1 Cyst of kidney, acquired; K57.30 Diverticulosis of large intestine without perforation or abscess without bleeding
CPT/HCPCS: 74176; 78306; A9503

== ENCOUNTER → 2021-10-20 | Outpatient (CLI) | payer MEDICARE ==
[~2021-10-20] MED LIST changes: -FLUO20CA46 PO; +FLUO20CA48 PO
--- NOTE | 2021-10-20 12:12 | Diagnostic Imaging Report ---
INDICATION: Shortness of breath on exertion. TIME OF EXAM: 11:51 AM Comparison is made with prior chest from 09/03/2019. Heart size stable. Right hemidiaphragm is elevated. No infiltrates are seen. The pulmonary vascularity is normal. No effusion or pneumothorax is detected. IMPRESSION: Chronic right hemidiaphragmatic elevation. No acute features detected. Dictated by: Dictated on workstation # [id number]
== END ==
LOC: RAD FS 11:40
PROVIDERS: ATTEND Family Medicine
DX: R06.02 Shortness of breath (principal)
CPT/HCPCS: 71046

== ENCOUNTER → 2021-12-10 | Outpatient (CLI) | payer MEDICARE ==
--- NOTE | 2021-12-10 11:19 | Diagnostic Imaging Report ---
EXAMINATION: CT abdomen and pelvis without contrast. TECHNIQUE: Multiple contiguous axial images were obtained through the abdomen and pelvis without the use of intravenous contrast. All CT scans use one or more of the following dose optimizing techniques: automated exposure control, MA and/or KvP adjustment based on patient size and exam type or iterative reconstruction. HISTORY: Prostate cancer followup COMPARISON: 11/13/2020 FINDINGS: Lung bases: Bibasilar dependent atelectasis. Solid organs: The liver is normal. The gallbladder is surgically absent. There is no biliary ductal dilation. Pancreas is normal. Spleen is normal. Adrenal glands are normal. There is a large right renal cyst which requires no followup. No visualized renal calculus or hydronephrosis. Bowel: The stomach and small bowel are normal without obstruction. There is scattered colonic diverticulosis. The appendix is normal. Peritoneum: There is no intraperitoneal free fluid or free air. No suspicious lymphadenopathy. Vasculature: Calcification of the aorta without aneurysm. Musculoskeletal: Degenerative changes of the spine without suspicious osseous lesion or compression fracture. Pelvis: There are calcifications within the prostate gland. The urinary bladder is normal. IMPRESSION: 1. No findings of metastatic disease within the abdomen or pelvis. 2. Colonic diverticulosis without findings of diverticulitis. Dictated by: Dictated on workstation # [id number]
--- NOTE | 2021-12-10 14:33 | Diagnostic Imaging Report ---
INDICATION: Prostate carcinoma. The patient was administered 25.8 mCi technetium 99m MDP intravenously and whole-body imaging was performed after a three-hour delay. Correlation is made with prior whole body bone scan from 11/13/2020. There is normal uptake of activity by the axial and appendicular skeleton. There is uptake by both kidneys with excretion to the urinary bladder. Postoperative changes in the right femur are noted. Post traumatic changes in the left ribs seen on prior study have healed. No suspicious foci or trace accumulation is seen to suggest osseous metastatic disease. There are probable degenerative changes in the upper cervical spine. IMPRESSION: No scintigraphic evidence of osseous metastatic disease. Dictated by: Dictated on workstation # [id number]
== END ==
LOC: CARD 10:34
PROVIDERS: ATTEND Urology
DX: K57.30 Diverticulosis of large intestine without perforation or abscess without bleeding (principal); C61 Malignant neoplasm of prostate
CPT/HCPCS: 74176; 78306; A9503

== ENCOUNTER 2021-12-27 09:26 | Outpatient (RCR) | payer MEDICARE | END 2022-01-08 | disposition home or self-care (01) | LOC: ONC 09:26 | PROVIDERS: ATTEND Radiology Radiation Oncology | DX: C61 Malignant neoplasm of prostate (principal); J44.9 Chronic obstructive pulmonary disease, unspecified | CPT/HCPCS: 99214 ==

== ENCOUNTER 2022-01-19 05:29 | Outpatient (CLI) | payer MEDICARE ==
[~2022-01-19] VITALS: Ht 182.9 cm; Wt 84.5 kg
[2022-01-19] MEDS ORDERED: IPRA3AMP31 IH (13:37)
[2022-01-19] MEDS ORDERED: ASPI-999 PO (13:37)
[2022-01-19] MEDS ORDERED: KETO15CR2 TP (13:37)
[2022-01-20] MEDS ORDERED: EYE VITAMIN (14:09)
[2022-01-20] MEDS ORDERED: CHOL100048 PO (14:10)
== END 2022-01-20 14:17 | disposition home or self-care (01) ==
LOC: PREOP 05:29
PROVIDERS: ATTEND Urology
DX: Z01.818 Encounter for other preprocedural examination (principal)

== ENCOUNTER 2022-01-26 07:08 | Day surgery (SDC) | payer MEDICARE ==
[~2022-01-26] VITALS: Ht 182 cm; Wt 84.5 kg
[2022-01-26] VITALS (10 sets, daily range): BP systolic 90–147; BP diastolic 45–72
[~2022-01-26 07:08] MED LIST changes: +ASPI-999 PO; +CHOL100048 PO; +EYE VITAMIN; +IPRA3AMP31 IH; +KETO15CR2 TP
--- NOTE | 2022-01-26 07:12 | Progress Note-Pre Operative ---
Pre-Operative Progress Note H&P Reviewed The H&P was reviewed, patient examined and no changes noted. Date Seen by Provider: January 26, 2022 Time Seen by Provider: 07:12 Date H&P Reviewed: January 26, 2022 Time H&P Reviewed: 07:12 Pre-Operative Diagnosis: CA PROSTATE CLEMENTINA MCNAMARA MD January 26, 2022 07:12
--- NOTE | 2022-01-26 07:22 | Progress Note-Post Operative ---
Post-Operative Progess Note Surgeon (s)/Supervisor Laundry (s) Surgeon CLEMENTINA MCNAMARA MD Supervisor Laundry: NONE Pre-Operative Diagnosis CA PROSTATE Post-Operative Diagnosis SAME Procedure & Operative Findings Date of Procedure 01/26/22 Procedure Performed/Findings SPACE OAR Anesthesia Type GENERAL Estimated Blood Loss Estimated blood loss (mL): NONE Specimens/Packing Specimens Removed NONE Packing: NONE CLEMENTINA MCNAMARA MD January 26, 2022 07:21
--- NOTE | 2022-01-26 07:23 | Discharge Inst-Urology ---
Discharge Inst-Urology Reconcile Patient Problems Problems Reviewed?: Yes Final Diagnosis CA PROSTATE Patient Instructions/Follow Up Plan/Assessment/Instructions Please make appointment to been seen in office in 4 weeks. Increase oral fluids for 48 hours and then as needed. Diet and Activity as tolerated. If questions or concerns contact your physician Or seek help at emergency department. CLEMENTINA MCNAMARA MD January 26, 2022 07:23
[2022-01-26] MEDS ORDERED: LACTATED RINGERS 1,000 ML IV PRN (07:30)
[2022-01-26] MEDS ORDERED: cefTRIAXone 1 GM PRE-MIX 50 ML IV ONE (07:30)
[2022-01-26] MEDS ORDERED: LIDOCAINE PF 2% 5 ML (XYLOCAINE) VIAL ONE (10:02)
[2022-01-26] MEDS ORDERED: fentaNYL INJ 100 MCG/2 ML AMP ONE (10:02)
[2022-01-26] MEDS ORDERED: proPOfol 200 MG/20 ML (DIPRIVAN) VIAL IV ONE (10:02)
[2022-01-26] MEDS ORDERED: ONDANSETRON 4 MG/2 ML (SDV) Z0FRAN ONE (10:02)
[2022-01-26] MEDS ORDERED: SEVOFLURANE (ULTANE) 15 ML INHAL SOLN ONE (10:36)
[2022-01-26] MEDS ORDERED: ONDANSETRON 4 MG/2 ML (SDV) Z0FRAN IVP PRN (10:45)
[2022-01-26] MEDS ORDERED: morphine INJ 10 MG/ML 1ML (SYR OR VIAL) IVP ONE (10:45)
--- NOTE | 2022-01-26 11:14 | Anesthesia-General Post-Op ---
General Patient Condition Mental Status/LOC: Same as Preop Cardiovascular: Satisfactory Nausea/Vomiting: Absent Respiratory: Satisfactory Pain: Controlled Complications: Absent Post Op Complications Complications None Follow Up Care/Instructions Patient Instructions None needed. Anesthesia/Patient Condition Patient Condition Patient is doing well, no complaints, stable vital signs, no apparent adverse anesthesia problems. No complications reported per nursing. THAI MEDINA CRNA January 26, 2022 11:14
[2022-01-26] MEDS ORDERED: CIPR-225 PO (11:34)
[2022-01-26] MEDS ORDERED: KETO10TA PO (11:34)
== END 2022-01-26 12:22 | disposition home or self-care (01) ==
LOC: SDC 07:08
PROVIDERS: ATTEND Urology
DX: C61 Malignant neoplasm of prostate (principal); Z87.891 Personal history of nicotine dependence
CPT/HCPCS: 55874; 87081; C1889

== ENCOUNTER 2022-02-03 08:48 | Outpatient (RCR) | payer MEDICARE ==
[~2022-02-03 08:48] MED LIST changes: +CIPR-225 PO; +KETO10TA PO
== END 2022-02-08 | disposition home or self-care (01) ==
LOC: ONC 08:48
PROVIDERS: ATTEND Radiology Radiation Oncology
DX: Z51.0 Encounter for antineoplastic radiation therapy (principal); C61 Malignant neoplasm of prostate; J44.9 Chronic obstructive pulmonary disease, unspecified
CPT/HCPCS: 77334

== ENCOUNTER → 2022-03-10 | Outpatient (RCR) | payer MEDICARE | END | disposition home or self-care (01) | LOC: ONC 02-10 14:22 | PROVIDERS: ATTEND Radiology Radiation Oncology | DX: Z51.0 Encounter for antineoplastic radiation therapy (principal); C61 Malignant neoplasm of prostate; J44.9 Chronic obstructive pulmonary disease, unspecified | CPT/HCPCS: 77300; 77301; 77336; 77338; 77385 ==

== ENCOUNTER 2022-03-17 09:00 | Outpatient (RCR) | payer MEDICARE | END 2022-04-10 | disposition home or self-care (01) | LOC: ONC 09:00 | PROVIDERS: ATTEND Radiology Radiation Oncology | DX: Z51.0 Encounter for antineoplastic radiation therapy (principal); C61 Malignant neoplasm of prostate | CPT/HCPCS: 77336; 77385 ==

== ENCOUNTER 2022-06-09 11:18 | Outpatient (RCR) | payer MEDICARE | END 2022-06-10 | LOC: ONC 11:18 | PROVIDERS: ATTEND Radiology Radiation Oncology | DX: C61 Malignant neoplasm of prostate (principal) | CPT/HCPCS: 99213 ==

== ENCOUNTER 2022-06-13 22:15 | Emergency (ER) | payer MEDICARE ==
[~2022-06-13] VITALS: Ht 182.8 cm; Wt 86.4 kg
[2022-06-13] MEDS ORDERED: RT-ALBUTEROL/IPRATROPIUM 3 ML (DUONEB) VIAL INH STA (22:27)
[2022-06-13] MEDS ORDERED: methylPREDNISolone 80 MG/ML (DEPO MEDROL) VIAL IM STA (22:27)
--- NOTE | 2022-06-13 22:34 | ED Cough/URI ---
General Stated Complaint: COUGH Source: patient, spouse History of Present Illness Date Seen by Provider: Jun 13, 2022 Time Seen by Provider: 22:16 Initial Comments 82-year-old male presenting with complaints of cough for over 2 weeks. He has a history of COPD. He has intermittently had some blood with the sputum when he coughs over these last few weeks. They felt that it was worse tonight with his coughing. He has not had a fever at home. He has not tried to get in with his primary care provider over the last 2 weeks. Around 4 or 5 PM today they felt like every time he coughed he had blood in his sputum. However he states that coughing as he was coming into the emergency department was clear and did not have any blood. He denies taking any blood thinners other than aspirin at this point. He has upper abdomen and chest wall pain from coughing. He had last done a breathing treatment around 7 PM. He also has been taking Mucinex for his cough. Timing/Duration: other (Waxing and waning over the last few weeks) Severity/Quality: blood streaked sputum (Intermittently but not constantly having blood in his sputum) Prior Episodes/Possible Cause: chronic episodes Modifying Factors: Worse With Activity, Worse With Coughing Associated Symptoms: chest pain/soreness, cough, muscle aches, shortness of breath Allergies and Home Medications Allergies Coded Allergies: No Known Drug Allergies (Verified , 01/19/22) Patient Home Medication List Home Medication List Reviewed: Yes ALPRAZolam (Xanax Tablet) 0.25 Mg Tablet, 0.25 MG PO BID, (Reported) Entered as Reported by: ALYSSA FRANCOIS on 01/31/19 0935 Azithromycin (Azithromycin) 250 Mg Tablet, 250 MG PO UD Prescribed by: MARCOS GARCÍA on 06/13/22 2320 Cholecalciferol (Vitamin D3) (Vitamin D3) 25 Mcg (1000 Unit) Capsule, 25 MCG PO, (Reported) Entered as Reported by: TAYE MOBLEY on 01/20/22 1410 Ciprofloxacin HCl (Cipro) 500 Mg Tablet, 500 MG PO BID Prescribed by: SHAMAR MARTINEZ on 01/26/22 1134 Fluoxetine HCl (Fluoxetine HCl) 20 Mg Capsule, 40 MG PO HS, (Reported) Entered as Reported by: ALYSSA FRANCOIS on 01/31/19 0935 Ipratropium/Albuterol Sulfate (Iprat-Albut 0.5-3(2.5) mg/3 ml) 0.5 Mg-3 Mg (2.5 Mg Base)/3 Ml Ampul.neb, 3 ML IH TID PRN for SHORTNESS OF BREATH, (Reported) Entered as Reported by: DALIA Mason DILIA on 01/19/22 1337 Ketoconazole (Ketoconazole) 2 % Cream..g., 15 GM TP UD, (Reported) Entered as Reported by: DALIA L DILIA on 01/19/22 1337 Ketorolac Tromethamine (Ketorolac Tromethamine) 10 Mg Tablet, 10 MG PO Q6H Prescribed by: SHAMAR MARTINEZ on 01/26/22 1134 Latanoprost (Latanoprost) 2.5 Ml Drops, 1 DROP OS HS, (Reported) Entered as Reported by: ALYSSA FRANCOIS on 01/31/19 0935 Lorazepam (Ativan) 0.5 Mg Tablet, 0.5 MG PO DAILY PRN for ANXIETY Prescribed by: NESTOR REVELES on 02/05/19 0025 Lovastatin (Lovastatin) 20 Mg Tablet, 20 MG PO HS, (Reported) Entered as Reported by: ALYSSA FRANCOIS on 01/31/19 0935 Magnesium Oxide (Magnesium) 250 Mg Tablet, 250 MG PO DAILY, (Reported) Entered as Reported by: ALYSSA FRANCOIS on 01/31/19 0935 Mv,Minerals/FA/Lycopene/Ginkgo (One Daily Men's 50+ Tablet) 1 Each Tablet, 1 TAB PO DAILY, (Reported) Entered as Reported by: ALYSSA FRANCOIS on 01/31/19 0935 [Eye Vitamin] Unknown Strength , Unknown Dose, (Reported) Entered as Reported by: TAYE MOBLEY on 01/20/22 1409 Review of Systems Review of Systems Constitutional: No chills, No fever EENTM: No ear discharge, No epistaxis, No nose congestion Respiratory: cough, hemoptysis, short of breath, wheezing Cardiovascular: see HPI Gastrointestinal: no symptoms reported Genitourinary: no symptoms reported Musculoskeletal: see HPI Skin: No rash Psychiatric/Neurological: No Symptoms Reported Hematologic/Lymphatic: No Symptoms Reported Past Nokdesg-Wvmioa-Ycownv Hx Immunizations Up To Date First/Initial COVID19 Vaccinat: 12/15/20 Second COVID19 Vaccination Christoph: 01/12/21 Seasonal Allergies Seasonal Allergies: No Past Medical History Surgery/Hospitalization HX: COPD, prostate cancer, pulm embolism, cholecystectomy, appendectomy, diverticulosis Surgeries: Yes (ROTATOR CUFF, GALLBLADDER, TOTAL RIGHT KNEE, BASAL CELL CA/LEFT EAR, ORIF ) Appendectomy, Eye Surgery, Gallbladder, Orthopedic Respiratory: Yes (PE POST SURGERY 2019) Pulmonary Embolism, COPD Currently Using CPAP: No Currently Using BIPAP: No Cardiac: No Neurological: No Genitourinary: Yes (PROSTATE CA) Prostate Problems Gastrointestinal: Yes Diverticulosis, Hemorrhoids Musculoskeletal: Yes Arthritis Endocrine: Yes 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 4.8oz. 90.596255yk; 25.51 BMI Method:Stated General Appearance: WD/WN, no apparent distress HEENT: PERRL/EOMI Neck: non-tender, full range of motion, supple, normal inspection Respiratory: chest non-tender, no respiratory distress, no accessory muscle use, decreased breath sounds, wheezing Cardiovascular: normal peripheral pulses, regular rate, rhythm Extremities: normal range of motion, no pedal edema, normal capillary refill Neurologic/Psychiatric: alert, oriented x 3 Skin: normal color, warm/dry Progress/Results/Core Measures Suspected Sepsis SIRS Temperature: Pulse: Respiratory Rate: Blood Pressure / Mean: Results/Orders My Orders Orders - MARCOS GARCÍA MD Chest 1 View Ap/Pa Only (06/13/22 22:27) Albuterol/Ipra Inhalation Soln (Duoneb I (06/13/22 22:27) Methylprednisolone Acetate Inj (Depo-Med (06/13/22 22:27) Svn Small Volume Nebulizer (06/13/22 22:27) Dexamethasone Injection (Decadron Inje (06/13/22 22:27) Azithromycin Tablet (Zithromax Tablet) (06/13/22 22:57) Vital Signs/I&O 06/13/22 06/13/22 22:21 22:21 Temp 37.5 Pulse 83 Resp 20 B/P (MAP) 133/74 (93) Pulse Ox 94 O2 Delivery Room Air Room Air Capillary Refill : Progress Note #1: Progress Note Obtain chest x-ray to evaluate for possible pneumonia or infiltrate. Administer DuoNeb breathing treatment and steroid shots with dexamethasone for faster acting help with his COPD and Depo-Medrol for longer acting to help with his COPD. Progress Note #2: Progress Note No acute infiltrate on chest x-ray. Chronic right hemidiaphragm is raised. With the having COPD and complaining of coughing to the point that he is seeing blood with his mucus will add in Zithromax to help with inflammation and COPD exacerbation. Encouraged to follow up with pcp for continued concerns. Pharmacy has not stocked azithromycin for patient's in the ED so will have him start in am after he picks up script from pharmacy. Diagnostic Imaging Diagonstic Imaging: Xray Plain Films/CT/US/NM/MRI: chest Comments [facility], [place] NAME: RUDY JORGENSEN [facility] REC#: [id number] PT STATUS: REG ER : 1940 PHYSICIAN: MARCOS GARCÍA MD ADMIT DATE: 06/13/22/ER FS Signed Date of Exam:06/13/22 CHEST 1 VIEW AP/PA ONLY EXAM: CHEST 1 VIEW AP/PA ONLY INDICATION: Cough. Hemoptysis. COMPARISON: Chest radiograph 10/20/2021. FINDINGS: Normal heart size and central pulmonary vascularity. Elevation of the right hemidiaphragm. Lungs are clear. No pleural effusion or pneumothorax. No acute osseous findings. IMPRESSION: 1. No acute cardiopulmonary findings. 2. Elevation of the right hemidiaphragm is stable. Dictated by: Dictated on workstation # [id number] Dict: 06/13/222234 Trans: 06/13/222246 [facility] [id number] Interpreted by: LASHAWN SULTANA MD Electronically signed by: LASHAWN SULTANA MD 06/13/222246 Reviewed: Reviewed by Me Departure Impression Primary Impression: COPD with exacerbation Additional Impression: Cough with hemoptysis Disposition: HOME, SELF-CARE Condition: Stable Departure-Patient Inst. Decision time for Depature: 23:00 Referrals: SELFCHRIS MD (PCP/Family) Primary Care Physician Patient Instructions: COPD Exacerbation, Adult ED, COPD Diet Add. Discharge Instructions: Continue with breathing treatments and Mucinex to help loosen your cough and congestion. The Chest Xray does not show pneumonia or fluid. Steroid shots from tonight will help with cough and shortness of breath from COPD. Take the Azithromycin to help with inflammation of your lungs and if there is an infection causing exacerbation of your COPD. Check with the [facility] clinic if you are not improving or having worsening symptoms Scripts Azithromycin (Azithromycin) 250 Mg Tablet 250 MG PO UD for COPD Exacerbation for 5 Days, #6 TAB 0 Refills 500 mg (2tabs) by mouth on first day then 250 mg(1 tab) daily for 4 more days Prov: MARCOS GARCÍA MD 06/13/22 MARCOS GARCÍA MD Jun 13, 2022 22:34
--- NOTE | 2022-06-13 22:38 | Diagnostic Imaging Report ---
EXAM: CHEST 1 VIEW AP/PA ONLY INDICATION: Cough. Hemoptysis. COMPARISON: Chest radiograph 10/20/2021. FINDINGS: Normal heart size and central pulmonary vascularity. Elevation of the right hemidiaphragm. Lungs are clear. No pleural effusion or pneumothorax. No acute osseous findings. IMPRESSION: 1. No acute cardiopulmonary findings. 2. Elevation of the right hemidiaphragm is stable. Dictated by: Dictated on workstation # [id number]
[2022-06-13] MEDS ORDERED: AZITHROMYCIN 250 MG TAB (ZITHROMAX) PO STA (22:57)
[2022-06-13] MEDS ORDERED: AZIT250T12 PO ×2 (23:03→23:20)
[2022-06-13 23:18] VITALS: BP 122/61
== END 2022-06-13 23:18 | disposition home or self-care (01) ==
LOC: EDUNIT# 22:15 → ER FS 22:16
DX: J44.1 Chronic obstructive pulmonary disease with (acute) exacerbation (principal); R04.2 Hemoptysis
CPT/HCPCS: 71045; 94640; 96372

== ENCOUNTER → 2022-07-05 | Outpatient (CLI) | payer MEDICARE ==
[~2022-07-05] MED LIST changes: +AZIT250T12 PO
== END ==
LOC: CARDFS 09:27
PROVIDERS: ATTEND Internal Medicine Cardiovascular Disease
DX: I25.10 Atherosclerotic heart disease of native coronary artery without angina pectoris (principal); I11.9 Hypertensive heart disease without heart failure
CPT/HCPCS: 93306

== ENCOUNTER → 2022-07-06 | Outpatient (CLI) | payer MEDICARE ==
[~2022-07-06] VITALS: Ht 182 cm; Wt 84.0 kg
[~2022-07-06] MED LIST changes: +CATHETER FLUSH 10 ML SYR IVP PRN; +REGADENOSON 0.4 MG/5 ML SYR (LEXISCAN) IV ONE
[2022-07-06 09:12] VITALS: BP 132/75
--- NOTE | 2022-07-06 11:30 | Cardiology Stress Test Report ---
Stress Test Report Date of Procedure/Referring: Date of Procedure: Jul 06, 2022 PCP Kodak Gresham MD Admitting Physician Admitting Physician: Attending Physician: Daisha Amezquita MD Baseline Heart Rate: 64 Baseline Blood Pressure: Blood Pressure Systolic: 132 Blood Pressure Diastolic: 75 Baseline Vitals Vital Signs Date Time Temp Pulse Resp B/P (MAP) Pulse Ox O2 Delivery O2 Flow Rate FiO2 07/06/22 09:12 75 132/75 (94) Baseline EKG: Baseline EKG: NSR Summary After explaining the procedure to the patient, he signed a consent and then brought to the stress nuclear laboratory. Patient received 0.4 mg Lexiscan for stress test, ECG, heart rate and blood pressure were monitored continuously. Resting and stress dose of radio tracer were injected, imaging was acquired and reviewed in short axis, horizontal long axis and vertical long axis views. TID: 1.12 SSS: 8 SDS: 1 EF: 62 1. Patient tolerated Lexiscan well 2. Diaphragmatic attenuation with fixed defect at the inferior wall, no significant ischemia was noted 3. Normal left ventricular size, ejection fraction 62% Copy Copies To 1: KODAK GRESHAM MD, BASHAR J MD Jul 06, 2022 11:30
== END ==
LOC: CARD 07:29
PROVIDERS: ATTEND Internal Medicine Cardiovascular Disease
DX: I25.10 Atherosclerotic heart disease of native coronary artery without angina pectoris (principal); I10 Essential (primary) hypertension
CPT/HCPCS: 78452; 93017; A9502

== ENCOUNTER 2022-10-12 10:36 | Day surgery (SDC) | payer MEDICARE ==
[2022-10-12] VITALS (8 sets, daily range): BP systolic 100–144; BP diastolic 62–87
[~2022-10-12] VITALS: Ht 182.9 cm; Wt 89.9 kg
[~2022-10-12 10:36] MED LIST changes: -CATHETER FLUSH 10 ML SYR IVP PRN; -REGADENOSON 0.4 MG/5 ML SYR (LEXISCAN) IV ONE
[2022-10-12] MEDS ORDERED: NS IV 1000 ML 1,000 ML ONE (10:56)
[2022-10-12] MEDS ORDERED: HEParin (CATH LAB) 2,000 ML IV ONE (10:56)
[2022-10-12] MEDS ORDERED: LIDOCAINE 1% INJ 20 ML VIAL ONE (10:56)
[2022-10-12] MEDS ORDERED: NS IV 1000 ML 1,000 ML IV SCH ×2 (11:00→13:15)
[2022-10-12 11:26] LABS: HEMATOCRIT 43 % (40-54); HEMOGLOBIN 14.1 g/dL (13.3-17.7); MEAN CORPUSCULAR HEMOGLOBIN 29 pg (25-34); MEAN CORPUSCULAR HGB CONC 33 g/dL (32-36); MEAN CORPUSCULAR VOLUME 90 fL (80-99); MEAN PLATELET VOLUME 9.9 fL (9.0-12.2); PLATELET COUNT 181 10^3/uL (130-400); WHITE BLOOD COUNT 4.8 10^3/uL (4.3-11.0)
[2022-10-12 11:28] LABS: BILIRUBIN,URINE NEGATIVE (NEGATIVE); CLARITY,URINE CLEAR; COLOR,URINE YELLOW; GLUCOSE, URINE (UA) NEGATIVE (NEGATIVE); KETONES,URINE NEGATIVE (NEGATIVE); LEUKOCYTE ESTERASE ,URINE NEGATIVE (NEGATIVE); NITRITE,URINE NEGATIVE (NEGATIVE); PH,URINE 5.5 (5-9); PROTEIN,URINE NEGATIVE (NEGATIVE)
[2022-10-12 11:37] LABS: PROTHROMBIN TIME PATIENT 13.7 SEC (12.2-14.7)
[2022-10-12 11:40] LABS: BACTERIA,URINE NEGATIVE /HPF; RBC,URINE 0-2 /HPF; SQUAMOUS EPITHELIAL CELL,UR RARE /HPF; WBC,URINE RARE /HPF
[2022-10-12 11:46] LABS: BILIRUBIN,TOTAL 1.2 MG/DL (0.1-1.0); CALCIUM 9.3 MG/DL (8.5-10.1); CREATININE SERUM 0.95 MG/DL (0.60-1.30); POTASSIUM 4.3 MMOL/L (3.6-5.0); TOTAL PROTEIN 7.3 GM/DL (6.4-8.2)
--- NOTE | 2022-10-12 11:47 | Diagnostic Imaging Report ---
INDICATION: Abnormal stress test. COMPARISON: 06/13/2022 FINDINGS: Single frontal view of the chest demonstrates normal heart size and pulmonary vascularity. The lungs show persistent asymmetric elevation right hemidiaphragm, but are otherwise clear. There is no large effusion or pneumothorax. Osseous structures show no gross acute abnormalities. IMPRESSION: 1. No new acute cardiopulmonary process. Dictated by: Dictated on workstation # [id number]
[2022-10-12] MEDS ORDERED: FLUO40CA PO (11:52)
[2022-10-12] MEDS ORDERED: LATA7.5D OU (11:55)
[2022-10-12] MEDS ORDERED: ASPI-1238 PO (11:56)
[2022-10-12] MEDS ORDERED: CELE200C PO (11:56)
--- NOTE | 2022-10-12 11:58 | Cardiac Procedure Note-CS/ASA ---
Pre-Procedure Note Pre-Op Procedure Note Date of Available H&P: Oct 03, 2022 Date H&P Reviewed: Oct 12, 2022 Time H&P Reviewed: 11:58 History & Physical: H&P Reviewed, Patient Examed, No changes noted Pre-Operative Diagnosis: CP Conscious Sedation Pre-Proced Time 11:58 ASA Score 3 For ASA 3 and 4: Consider anesthesia and medical clearance. Also, for patients with a history of failed moderate sedation consider anesthesia. Airway Lungs Heart ASA score ASA 1: a normal healthy patient ASA 2: a patient with a mild systemic disease (mid diabetes, controlled hypertension, obesity ASA 3: a patient with a severe systemic disease that limits activity (angina, COPD, prior Myocardial infarction) ASA 4: a patient with an incapacitating disease that is a constant threat to life (CHF, renal failure) ASA 5: a moribund patient not expected to survive 24 hrs. (ruptured aneurysm) ASA 6: a declared brain- patient whose organs are being harvested. For emergent operations, add the letter E after the classification Mallampati Classification Grade 3 Sedation Plan Analgesia, Amnesia, Plan communicated to team members, Discussed options with patient/fam, Discussed risks with patient/fam The patient is an appropriate candidate to undergo the planned procedure, sedation, and anesthesia. The patient immediately re-assessed prior to indication. JANICE NEIL MD Oct 12, 2022 11:58
[2022-10-12] MEDS ORDERED: VERAPAMIL 5 MG/2 ML (CALAN) VIAL IV ONE (12:10)
[2022-10-12] MEDS ORDERED: MIDAZOLAM 5 MG/5 ML (VERSED) VIAL ONE (12:10)
[2022-10-12] MEDS ORDERED: HEParin 1000 UNIT/ML (10ML VIAL) FOR BOLUS ONE (12:10)
[2022-10-12] MEDS ORDERED: fentaNYL INJ 100 MCG/2 ML AMP ONE (12:10)
[2022-10-12] MEDS ORDERED: NITRO DRIP 25000 MCG/D5W 250 ML IV ONE (12:11)
--- NOTE | 2022-10-12 13:04 | Discharge Inst-Post CATH ---
Discharge Inst-CATH/EP Problems Reviewed?: Yes Post Cardiac Cath/EP D/C Inst Follow Up/Plan Appointment with Dr. Amezquita's office in 2 to 4 weeks <b>CARDIAC CATH/EP PROCEDURE DISCHARGE INSTRUCTIONS</b> ACTIVITY * Go Home directly and rest. * Limit activity of the leg (or wrist if it was used) for 7 days including aer obics, swimming, jogging, bicycling, etc. * Restrict stair-climbing for 7 days if possible, if not, climb up with your non-cath leg, then bring together on the same step. * Avoid lifting, pushing, pulling or excessive movement of the affected extremi ty for 7 days. * Customary sexual activity may be resumed after 2 days-use caution not to use a position that strains or causes pain to the affected extremity. * No driving for 24 hours. * NO SMOKING. * Avoid straining for bowel movements for 7 days. * Gentle walking on level ground is allowed. * Returning to work will depend on the type of procedure and the results. Your doctor will discuss this with you. CALL YOUR DOCTOR FOR ANY OF THE FOLLOWING: *If bleeding from the puncture site occurs- Apply gentle pressure to site with clean cloth and call your doctor or EMS. * If a knot or lump forms under the skin, increases in size, or causes pain. * If bruising appears to be worsening or moving further down your leg instead of disappearing. * Temperature above 101 F. CARE OF YOUR GROIN INCISION; * Bruising or purple discoloration of the skin near the puncture site is common. * You may shower only, no bathtub bathing for 5 days. Be careful to avoid slipping as your leg may feel stiff. * If a closure device was used on your femoral artery, please see the attached guide regarding care of the device and your leg. * Leave dressing on FOR 24 hours. CARE OF YOUR WRIST INCISION; * Bruising or purple discoloration of the skin near the puncture site is common. * You may shower. * DO NOT submerge wrist. * Leave dressing on FOR 24 hours. JANICE AMEZQUITA MD Oct 12, 2022 13:04
--- NOTE | 2022-10-12 13:07 | Cardiac Cath Report ---
Cardiac Cath Report Physician (s)/Harpooner (s) Physician JANICE NEIL MD Pre-Procedure Diagnosis Pre-Procedure Diagnosis: CP Post-Procedure Note Procedure Start Date: Oct 12, 2022 Name of Procedure: Coronary angiogram Findings/Procedure Note PROCEDURE NOTE: 82-year-old gentleman with history of hypertension, has been having chest pain, had borderline stress test. Discussed the management plan, due to his significant symptoms I recommended cardiac catheterization possible PTCA. After explaining the procedure to the patient, all pros and cons were explained, all questions were answered. The patient signed the consent and then he was placed in the cardiac catheterization laboratory. Groin was prepped in SL fashion local anesthesia was used. Sheath placed in the right radial artery, [place] catheter was advanced and engaged the right and left coronary system, angiogram was done. At the end of the procedure the sheath was removed. Vascular band was used FINDINGS: Hemodynamics LV did not cross the aortic valve Aorta 83/49 mean of 50 ANATOMY: Left Main is calcified with no obstructive disease Left Anterior Descending is tortuous artery with mild myocardial bridging, no significant obstructive disease Left Circumflex has mild disease nonobstructive disease Right Coronary Artery dominant artery with mild disease nonobstructive disease CONCLUSION: 1. Calcified coronary system with mild coronary artery disease nonobstructive disease DISCUSSION AND RECOMMENDATION: Recurrent chest pain is probably noncardiac. Conservative management is recommended Anesthesia Type: Conscious Sedation Estimated blood loss (mL): 10 ml Contrast Amount: 34 ml Total Radiation Dose: 33 mGy Post-Procedure Diagnosis Post-operative diagnosis: Chest pain Coronary artery disease Hyperlipidemia. JANICE NEIL MD Oct 12, 2022 13:07
== END 2022-10-12 15:30 | disposition home or self-care (01) ==
LOC: CATH 10:36 → SDC 13:19 → CATH 15:30
PROVIDERS: ATTEND Internal Medicine Cardiovascular Disease
DX: I25.10 Atherosclerotic heart disease of native coronary artery without angina pectoris (principal); Q24.5 Malformation of coronary vessels; E78.5 Hyperlipidemia, unspecified; E78.2 Mixed hyperlipidemia; I10 Essential (primary) hypertension; I65.23 Occlusion and stenosis of bilateral carotid arteries; Z87.891 Personal history of nicotine dependence; Z79.899 Other long term (current) drug therapy; Z87.09 Personal history of other diseases of the respiratory system; Z79.82 Long term (current) use of aspirin
CPT/HCPCS: 71045; 80053; 80061; 81000; 85027; 85610; 85730; 87081; 93005; 93454; C1894; 36415

== ENCOUNTER 2022-10-18 10:25 | Outpatient (RCR) | payer MEDICARE ==
[~2022-10-18 10:25] MED LIST changes: +CELE200C PO; +FLUO40CA PO; +LATA7.5D OU
== END 2022-11-08 | disposition home or self-care (01) ==
LOC: ONC 10:25
PROVIDERS: ATTEND Radiology Radiation Oncology
DX: C61 Malignant neoplasm of prostate (principal); J44.9 Chronic obstructive pulmonary disease, unspecified
CPT/HCPCS: 36415; 84153

== ENCOUNTER 2023-04-18 12:48 | Outpatient (RCR) | payer MEDICARE | END 2023-05-11 | disposition home or self-care (01) | LOC: ONC 12:48 | PROVIDERS: ATTEND Radiology Radiation Oncology | DX: C61 Malignant neoplasm of prostate (principal); I10 Essential (primary) hypertension; I65.29 Occlusion and stenosis of unspecified carotid artery; I25.10 Atherosclerotic heart disease of native coronary artery without angina pectoris; E78.2 Mixed hyperlipidemia | CPT/HCPCS: 36415; 84153 ==